=== PATIENT | male | born 1970 | race Caucasian/White ===

== ENCOUNTER 2017-10-07 10:19 | Inpatient (IN) ==
[2017-10-07 11:02] LABS: Basophils # 0.1 K/mcL (0.0-0.2); Basophils % 0.6 %; Eosinophils # 0.2 K/mcL (0.0-0.6); Eosinophils % 1.3 %; Hematocrit 42.3 % (37.5-50.1); Hemoglobin 14.7 g/dL (12.9-16.9); Immature Granulocytes % 0.9 % (0-4); Lymphocytes # 2.6 K/mcL (0.6-4.6); Lymphocytes % 20.4 %; Mean Corpuscular HGB Conc 34.8 g/dL (31.6-35.5); Mean Corpuscular Hemoglobin 31.2 pg (28.0-33.3); Mean Corpuscular Volume 89.8 fL (83.0-100.0); Mean Platelet Volume 11.3 fL (9.4-12.4); Monocytes # 1.2 K/mcL (0.0-1.3); Monocytes % 9.2 %; Neutrophils # 8.6 K/mcL (1.6-8.9); Platelet Count 280 K/mcL (140-400); Red Blood Count 4.71 M/mcL (4.19-5.50); Red Cell Distribution Width 13.2 % (11.5-14.5); Segmented Neutrophils % 67.6 %
[2017-10-07 11:09] LABS: INR 1.2; Prothrombin Time 13.1 Seconds (9.4-12.1)
[2017-10-07 11:12] LABS: Activated Partial Thrombo Time 25.1 Seconds (26.0-36.0)
--- NOTE | 2017-10-07 11:13 | Emergency Department Note ---
Disposition Clinical Impression: Chest pain Qualifiers: Chest pain type: unspecified Qualified Code(s): R07.9 - Chest pain, unspecified Disposition: Admitted As Inpatient Condition: Good Chest Pain HPI - General Chief Complaint: ED Chest Pain Stated Complaint: C/P Time Seen by Provider: 10/07/17 10:53 Source: patient Mode of arrival: ambulatory Limitations: no limitations Vital Signs Reviewed: Yes Nursing Notes Reviewed: Yes - History of Present Illness HPI Narrative: Patient presents for evaluation of chest pain. Patient states that he was evaluated approximately 30 days ago at [facility] for similar and told that he had a heart attack. He had a stress test. No cardiac catheter or stents or bypass. There were medication changes made. Patient has continued to have what he describes as someone pressing a shovel onto his chest. This pressure comes on with exertion. Is associated with shortness of breath. Gets better with rest. Patient describes likely to be classic anginal symptoms. Patient states that he can sometimes make it 15 minutes prior to having his symptoms but other times cannot make it more than several steps down the hallway. The patient has a mother who had a heart attack in her early 50s. He smokes on a daily basis. He does not know about hypertension or hypercholesterol. He was seen at his PCP today told he was having a heart attack and referred to the emergency department for further testing and admission. Severity scale (1-10): 10 - Related Data Home Medications Medication Instructions Recorded Confirmed Metoprolol Tartrate [Lopressor] 50 mg PO BID 10/07/17 10/07/17 Allergies Allergy/AdvReac Type Severity Reaction Status Date / Time No Known Allergies Allergy Verified 10/07/17 10:33 Review of Systems: CONSTITUTIONAL: No weight loss, fever, chills, weakness or fatigue. HEENT: Eyes: No visual changes. Ears, Nose, Throat: No hearing loss, difficulty talking or unable to swallow. SKIN: No rash or itching. CARDIOVASCULAR: Chest pain worse with exertion. RESPIRATORY: Shortness of breath with exertion GASTROINTESTINAL: No anorexia, nausea, vomiting or diarrhea. No abdominal pain or blood. GENITOURINARY: No burning on urination or hematuria. NEUROLOGICAL: No headache, dizziness, syncope, paralysis, ataxia, numbness or tingling in the extremities. No change in bowel or bladder control. MUSCULOSKELETAL: No muscle pain, back pain, joint pain or stiffness. Chest Pain PMH - Past Medical History Medical history: Reports: hypertension, myocardial infarction Psychiatric history: Reports: anxiety - Social History Smoking Status: Current every day smoker Alcohol use: Reports: none Physical Exam General: Well appearing, nontoxic, no acute distress Head: Normocephalic Atraumatic Eyes: PERRL, EOMI ENT: Airway patent, no stridor Neck: supple, no meningismus Chest: Lungs clear to auscultation bilateral Cardiac: Regular rate and rhythm, no murmurs, rubs or gallops Abdomen: soft, nontender, nondistended; no guarding, rebound, or tenderness to percussion Musculoskeletal: Calves symmetric, nontender, no palpable cord Skin: No rash, normal skin tone Neuro: Alert and Oriented to person, place, and time; No focal deficit, CN 2-12 symmetric and intact - General General appearance: alert, in no apparent distress Course - Reevaluation(s) Reevaluation #1: The patient's previous blood work from [facility] shows that he has an elevated troponin. The patient then had stress testing which was unremarkable. Patient continues to have classic anginal symptoms. Patient be admitted for further evaluation. - Consultations Consultation #1: Discussed with hospitalist. Patient accepted for admission. Vital Signs Temperature 99.4 F 10/07/17 10:24 Pulse Rate 94 10/07/17 10:24 Respiratory Rate 16 10/07/17 10:24 Blood Pressure 126/93 10/07/17 10:24 O2 Sat by Pulse Oximetry 96 10/07/17 10:24 Temperature 98.6 F 10/07/17 19:35 Pulse Rate 101 10/07/17 19:35 Respiratory Rate 16 10/07/17 19:35 Blood Pressure 147/100 10/07/17 19:35 O2 Sat by Pulse Oximetry 97 10/07/17 19:35 Oxygen Delivery Oxygen Delivery Room Air Chest Pain - Medical Records Medical records reviewed: Yes I reviewed the patient's medical records. - Lab Data Lab results reviewed: Yes I reviewed the patient's lab results. Result diagrams: 10/07/17 10:54 10/07/17 10:54 Lab Results 10/07/17 10/07/17 10/07/17 Range/Units 10:54 10:54 10:54 WBC 12.6 H (4.3-11.1) K/mcL RBC 4.71 (4.19-5.50) M/mcL Hgb 14.7 (12.9-16.9) g/dL Hct 42.3 (37.5-50.1) % MCV 89.8 (83.0-100.0) fL MCH 31.2 (28.0-33.3) pg MCHC 34.8 (31.6-35.5) g/dL RDW 13.2 (11.5-14.5) % Plt Count 280 (140-400) K/mcL MPV 11.3 (9.4-12.4) fL Immature Gran % 0.9 (0-4) % Seg Neutrophils % 67.6 % Lymphocytes % 20.4 % Monocytes % 9.2 % Eosinophils % 1.3 % Basophils % 0.6 % Neutrophils # 8.6 (1.6-8.9) K/mcL Lymphocytes # 2.6 (0.6-4.6) K/mcL Monocytes # 1.2 (0.0-1.3) K/mcL Eosinophils # 0.2 (0.0-0.6) K/mcL Basophils # 0.1 (0.0-0.2) K/mcL PT 13.1 H (9.4-12.1) Seconds INR 1.2 APTT 25.1 L (26.0-36.0) Seconds Sodium 131 L (136-145) mEq/L Potassium 3.7 (3.5-5.1) mEq/L Chloride 99 (98-107) mEq/L Carbon Dioxide 15 L (23-29) mEq/L BUN 11 (6-20) mg/dL Creatinine 0.82 (0.70-1.30) mg/dL Est GFR ( Amer) > 60 (> 60) Est GFR (Non-Af Amer) > 60 (> 60) BUN/Creatinine Ratio 13 (6-26) Glucose 432 H (70-105) mg/dL Calculated Osmolality 290 (280-300) Calcium 9.3 (8.6-10.3) mg/dL Troponin I (< 0.04) ng/mL 10/07/17 Range/Units 10:54 WBC (4.3-11.1) K/mcL RBC (4.19-5.50) M/mcL Hgb (12.9-16.9) g/dL Hct (37.5-50.1) % MCV (83.0-100.0) fL MCH (28.0-33.3) pg MCHC (31.6-35.5) g/dL RDW (11.5-14.5) % Plt Count (140-400) K/mcL MPV (9.4-12.4) fL Immature Gran % (0-4) % Seg Neutrophils % % Lymphocytes % % Monocytes % % Eosinophils % % Basophils % % Neutrophils # (1.6-8.9) K/mcL Lymphocytes # (0.6-4.6) K/mcL Monocytes # (0.0-1.3) K/mcL Eosinophils # (0.0-0.6) K/mcL Basophils # (0.0-0.2) K/mcL PT (9.4-12.1) Seconds INR APTT (26.0-36.0) Seconds Sodium (136-145) mEq/L Potassium (3.5-5.1) mEq/L Chloride (98-107) mEq/L Carbon Dioxide (23-29) mEq/L BUN (6-20) mg/dL Creatinine (0.70-1.30) mg/dL Est GFR ( Amer) (> 60) Est GFR (Non-Af Amer) (> 60) BUN/Creatinine Ratio (6-26) Glucose (70-105) mg/dL Calculated Osmolality (280-300) Calcium (8.6-10.3) mg/dL Troponin I 0.03 (< 0.04) ng/mL - Radiology Data Radiology results reviewed: Yes I reviewed the patient's radiology results. - EKG Data EKG attestation: Yes I reviewed and interpreted this EKG. EKG results narrative: EKG shows sinus rhythm with ventricular rate of 93. PR126. QRS 94. QTC 376. No significant elevations or depressions. Patient does have T-wave flattening of the inferior lateral leads. No previous comparison. Heart Score - Score History: Highly Suspicious EKG: Non Specific repolarisation Disturbance Age: 45-65 Risk Factors: 1-2 risk factors Troponin: Less than normal limit HEART Score Total: 5
[2017-10-07] MEDS ORDERED: Aspirin 325 MG TABLET PO ONE (11:21)
--- NOTE | 2017-10-07 11:21 | Emergency Department Note ---
START Narrative - START START: I examined this patient and my medical decision-making was reviewed with the Resident Physician. I agree with the documented findings, disposition and treatment plan as described except to the extent set forth below. 47-year-old male presents to the ER with chest pain. Patient states he had a mild heart attack 30 days ago [facility] They did not do heart catheter on him. He does smoke one pack per day. No stent. Patient will need to be admitted for cardiac workup and consultation.
[2017-10-07 11:23] LABS: BUN/Creatinine Ratio 13 (6-26); Blood Urea Nitrogen 11 mg/dL (6-20); Calcium 9.3 mg/dL (8.6-10.3); Carbon Dioxide 15 mEq/L (23-29); Chloride 99 mEq/L (98-107); Glucose 432 mg/dL (70-105); Osmolality,Calculated 290 (280-300); Potassium 3.7 mEq/L (3.5-5.1); Sodium 131 mEq/L (136-145); eGFR For African Americans > 60 (> 60); eGFR For Non-African Americans > 60 (> 60)
[2017-10-07] MEDS: Nitroglycerin 0.4 MG TAB.SUBL SL PRN ×6 (11:43→20:55)
[2017-10-07] MEDS ORDERED: *HR* Morphine 2 MG/ML SYRINGE IVP ONE (12:31)
--- NOTE | 2017-10-07 14:17 | Internal Med History&Physical ---
Date of Encounter: 10/07/17 Time of Encounter: 14:14 Assessment and Plan (1) Hyperglycemia Current visit: Yes Status: Acute Not known to be diabetic. Sugars in the 400 range. Check hemoglobin A-1 C. Check sugars before meals and bedtime. (2) Chest pain Current visit: Yes Status: Acute r/o acute coronary syndrome. Electrocardiogram shows no ST-segment shifts. Check serial troponin. continue aspirin beta blockers. troponin normal. Cardiology evaluation. Tele monitoring Qualifiers: Chest pain type: unspecified Qualified Code(s): R07.9 - Chest pain, unspecified Internal Medicine - H&P: HPI History of present illness: Mr. Deshpande is a 47 year old male who presents to the emergency room today with a main complaint of chest pain. Since this morning patient has been having retrosternal dull aching chest pain that has been constant since it started. He notices that pain gets worse with exertion. He also mentioned that he has been having this pain many days over the past month. Sublingual nitroglycerin does not improve his pain but rather causes headache and hypotension. He was evaluated month ago for similar symptoms and reports elevated troponin. He never had a coronary angiogram. Past Med Surg Social Fam HX - Past Medical History Medical history: hypertension, myocardial infarction Psychiatric history: anxiety - Social History Smoking Status: Current every day smoker Alcohol use: none Internal Medicine - H&P: Meds Metoprolol Tartrate [Lopressor] 50 mg PO BID 10/07/17 [History] 3 Allergy/AdvReac Type Severity Reaction Status Date / Time No Known Allergies Allergy Verified 10/07/17 10:33 All Systems PM: A 10-system review of systems was performed and is negative for pertinent findings except as documented above in the HPI. Review of systems: 10 point review of systems is negative except for HPI - Constitutional Vitals: Temp Pulse Resp BP Pulse Ox 99.4 F 94 12 98/71 94 10/07/17 10:24 10/07/17 13:29 10/07/17 13:29 10/07/17 13:29 10/07/17 13:29 Exam: Gen.: patient is alert oriented times 3 not in distress. Cardiac: normal S1 S2 no additional sounds are murmurs. Chest: clear to auscultation. Abdomen: soft nontender nondistended. Lower extremity no swelling mucous membranes: moist Internal Med - H&P Results - Labs CBC & Chem 7: 10/07/17 10:54 10/07/17 10:54
--- NOTE | 2017-10-07 14:19 | Cardiology Consult Note ---
<John Shannon - Last Filed: 10/07/17 14:20> Date of Encounter: 10/07/17 Time of Encounter: 14:20 Assessment and Plan (1) Chest pain Current Visit: Yes Status: Acute Per Cardiology: Atypical chest pain symptoms reproducible with palpation, laying flat, and deep inspiration. Had recent mild troponins with peak of 0.138 at outside facility a few weeks ago in setting of acute pancreatitis. Echo at that time showed EF preserved 55-60%, mild diastolic dysfunction. Negative nuclear stress test. Troponin negative 1. Obtain medical records from outside facility-- reports surgery on his stomach about one year ago. Continue cycle troponins. Can consider further ischemic evaluation in terms of left heart catheterization, however will monitor to determine if clinically appropriate. I will discuss and review with Dr. Solorio. Qualifiers: Chest pain type: unspecified Qualified Code(s): R07.9 - Chest pain, unspecified Discussion w patient/family: The assessment and plan as outlined above was discussed with the patient and/or family members who expressed understanding and agreement. All questions were answered. Thank you for involving us in the care of your patient. Please call with any questions. History of Present Illness Consult date: 10/07/17 Requesting physician: Nabeel Mooney Consult reason: CP Chief complaint: CP History of present illness: Mr. Deshpande is a 47 year old male with a relevant past medical history nicotine abuse, anxiety, GERD, PUD, ETOH abuse, and hypertension (recently diagnosed). Not previously seen by cardiology. Outside medical records reviewed: seen late August/early September at [facility] and diagnosed with acute pancreatitis with mild troponins 0.112, 0.138 , and 0.125. Echo at that time showed EF 55-60%, mild diastolic dysfunction. Nuclear imaging negative for ischemia September 2017. Of note patient + for metamphetamines, + opiates. ETOH level was 0.103. Cardiology consult for chest pain. Patient seen with girlfriend at bedside. Patient reports since last hospital stay over the past one month has been experiencing chest pain at rest and with exertion. Reports presented to establish with PCP today and had chest pain upon evaluation with ECG obtained and then referred to ER by PCP at that time. Patient reports over the past few months overall increased shortness of breath with exertion. He reports for the past one month increased chills and diaphoresis. He reports occasional dizziness. He reports family history mother with CAD with stenting. He reports he smoked 1.5ppd for at least 30 years. He reports history of using Percocet in the past, however denies any recent drug use. Denies any history of IV drug abuse. Reports had recent emergency surgery" for his stomach " about one year ago at [facility]. Has never had LHC. Midsternal CP slightly worse today with palpation. CP worsened today with laying flat and taking deep inspirations. Past Med Surg Social Fam HX - Past Medical History Attestation: Yes The following information was validated with the patient. Source: patient, old records reviewed, obtained from family Medical history: hypertension, myocardial infarction Psychiatric history: anxiety - Social History Smoking Status: Heavy tobacco smoker Packs per day: 1.5ppd for at least 30 yrs Alcohol use: heavy (Reports 3-5 shots of vodka 3-5 days per week for the past 15 years, reports recently quit a month ago), recent Drug use: unknown (Patient denies-- coarse history of utilizing Percocet), opiates (+ 1 month ago ), [facility]) Medications and Allergies Metoprolol Tartrate [Lopressor] 50 mg PO BID 10/07/17 [History] 3 Allergy/AdvReac Type Severity Reaction Status Date / Time No Known Allergies Allergy Verified 10/07/17 10:33 All Systems Review: A 10-system review of systems was performed and is negative for pertinent findings except as documented above in the HPI. - Constitutional Constitutional: chills - Cardiovascular Cardiovascular: as per HPI, chest pain at rest, chest pain with exertion, diaphoresis, dyspnea on exertion Physical Examination Vital Signs, Last 4 Hours Pulse Resp BP Pulse Ox 10/07/17 13:29 94 12 98/71 94 General: Conversant, No Apparent Distress HEENT: Atraumatic, Normocephaly, Mucus Membranes Moist Neck: No JVD, Normal carotid pulses Cardiac: Reg Rate and Rhythm, Normal S1 and S2, No Murmur Lungs: Normal Breath Sounds, No Wheeze, Rales, Rhonchi Neuro: Alert and responsive, No focal deficits noted Abdomen: Soft, Non-Tender Skin: No rashes noted on visualized skin Musculoskeletal: No Chest Wall Tenderness Extremities: No Clubbing, No Cyanosis, No Edema, Normal Pulses Results 10/07/17 10:54 10/07/17 10:54 Laboratory Tests 10/07/17 10/07/17 10/07/17 10:54 10:54 10:54 INR 1.2 Creatinine 0.82 Est GFR (Non-Af Amer) > 60 Troponin I 0.03 ITS Impressions Chest X-Ray 10/07/17 10:35 IMPRESSION: No acute cardiopulmonary pathology. D/ / Chay Nagel MD / Chay Nagel MD Interpreting Provider: Chay Nagel MD Intake & Output 10/04/17 10/05/17 10/06/17 10/07/17 23:59 23:59 23:59 23:59 Weight 75.296 kg Active Medications Aspirin (Aspirin) 325 mg PO DAILY [facility] Stop: 04/09/18 09:01 Enoxaparin Sodium (Lovenox) 40 mg SQ 0600 [facility] PRN Reason: Protocol Stop: 04/08/18 15:01 Metoprolol Tartrate (Lopressor) 25 mg PO BID [facility] Stop: 04/08/18 21:01 Nitroglycerin (Nitroglycerin) 0.4 mg SL Q5MIN PRN PRN Reason: Chest Pain Stop: 04/08/18 11:22 Last Admin: 10/07/17 11:49 Dose: 0.4 mg - Imaging and Cardiology Stress Test: report reviewed Echo: report reviewed - EKG Interpretation EKG results cardiology: personally reviewed, normal ECG, sinus rhythm ( Nonspecific ST changes, artifact) Consult Discharge Plan - Plan Referrals: Myles Hess MD [Primary Care Provider] - 10/21/17 9:00 am <Twin Solorio - Last Filed: 10/10/17 11:17> Date of Encounter: 10/07/17 Time of Encounter: 18:00 - Attending Attestation I have personally performed a face to face evaluation on this patient. I have reviewed and agree with the care plan. History and Exam by me shows: CC: Chest pain Pt reports midsternal chest pain, 8/10 at most severe, associated with exertion , accompanied by shortness of breath, lasts ten to fifteen minutes, resolves with rest. HE has had several episodes per week, but do not occur daily. Pt also reports has had several episodes of dizziness and shortness of breath which have occurred at rest, These events are less frequent than chest pain. He has not had an event while driving, has not actually lost consciousness. Pt denies previous cardiac evaluation other than an EKG, no previous echo or LHC that he or his girlfriend at bedside can recall. PE: Reviewed above, agree with addition of pinpoint tenderness left fifth interapace, mid clavicular line, very tender to palpation, light pressure reproduces presenting chest pain. IMP: 1. Chest pain, some components suggestive of exertional angina, in pt with multiple risk factors, discussed medical tx versus LHC, note previous positive cardiac enzemes in early [facility] at [facility], recommend LHC, pt elects to proceed with invasive strategy, will schedule LHC possible in AM. Risks and benefits discussed, agrees to proceed. 2. Tobacco abuse, recommend smoking cessation 3. Hypertension: recent diagnosis, started on PO metoprolol 4. Possible substance abuse, note urine screen positive for meamphetamines, opiates and alcohol, Assessment and Plan Discussion w patient/family: The assessment and plan as outlined above was discussed with the patient and/or family members who expressed understanding and agreement. All questions were answered. Thank you for involving us in the care of your patient. Please call with any questions. History of Present Illness History of present illness: Mr. Deshpande is a 47 year old male Past Med Surg Social Fam HX - Family History Mother Hx Family Cardiac Disorders: Yes Hx Family Endocrine Disorder: Yes All Systems Review: A 10-system review of systems was performed and is negative for pertinent findings except as documented above in the HPI. Physical Examination Vital Signs, Last 4 Hours Temp Pulse Resp BP Pulse Ox 10/10/17 09:00 96 10/10/17 07:00 98.1 F 105 17 144/97 96 Results 10/10/17 08:00 10/10/17 08:00 Lab Results 10/10/17 10/10/17 08:00 08:00 WBC 7.6 Hgb 13.6 Hct 38.5 Plt Count 187 Sodium 130 L Potassium 3.8 Chloride 96 L Carbon Dioxide 24 BUN 7 Creatinine 0.56 L Glucose 307 H Calcium 9.0 Total Bilirubin 0.5 AST 20 ALT 14 Alkaline Phosphatase 111 H
[2017-10-07] MEDS: *HR* Enoxaparin 40 MG/0.4 ML SYRINGE SQ SCH (15:51)
[2017-10-07] MEDS: *HR* Morphine 2 MG/ML SYRINGE IVP PRN ×2 (18:27→23:20)
[2017-10-07] MEDS ORDERED: *HR* Dextrose 50 % in Water (Syg) 50 ML SYRINGE IVP PRN (20:11)
[2017-10-07] MEDS ORDERED: D5% in Water 1,000 ML IVC PRN (20:11)
[2017-10-07] MEDS ORDERED: Dextrose Gel 15 GM/37.5 ML TUBE PO PRN ×2 (20:11)
[2017-10-07] MEDS: Insulin LISPRO 300 UNITS/3 ML VIAL SQ SCH ×2 (20:34→20:37)
[2017-10-07] MEDS ORDERED: Insulin LISPRO 300 UNITS/3 ML VIAL SQ ONE (23:06)
[2017-10-08] MEDS: Melatonin 3 MG TABLET PO PRN ×2 (01:24→22:22)
[2017-10-08] MEDS: *HR* Morphine 2 MG/ML SYRINGE IVP PRN ×4 (05:12→22:20)
[2017-10-08] MEDS: *HR* Enoxaparin 40 MG/0.4 ML SYRINGE SQ SCH (05:14)
[2017-10-08 05:34] LABS: Basophils % 0.4 %; Eosinophils # 0.1 K/mcL (0.0-0.6); Eosinophils % 1.4 %; Hematocrit 39.8 % (37.5-50.1); Hemoglobin 13.7 g/dL (12.9-16.9); Lymphocytes # 1.5 K/mcL (0.6-4.6); Lymphocytes % 16.3 %; Mean Corpuscular HGB Conc 34.4 g/dL (31.6-35.5); Mean Corpuscular Hemoglobin 30.8 pg (28.0-33.3); Mean Corpuscular Volume 89.4 fL (83.0-100.0); Mean Platelet Volume 11.8 fL (9.4-12.4); Monocytes # 1.1 K/mcL (0.0-1.3); Monocytes % 11.4 %; Neutrophils # 6.6 K/mcL (1.6-8.9); Platelet Count 222 K/mcL (140-400); Red Blood Count 4.45 M/mcL (4.19-5.50); Red Cell Distribution Width 13.2 % (11.5-14.5); Segmented Neutrophils % 69.5 %
[2017-10-08 05:42] LABS: Hemoglobin A1C 10.1 %
[2017-10-08 05:52] LABS: BUN/Creatinine Ratio 15 (6-26); Blood Urea Nitrogen 9 mg/dL (6-20); Calcium 9.2 mg/dL (8.6-10.3); Carbon Dioxide 24 mEq/L (23-29); Chloride 103 mEq/L (98-107); Chol/HDL Ratio 3.6 (0-4.9); Cholesterol 123 mg/dL (< 200); Glucose 205 mg/dL (70-105); HDL Cholesterol 34 mg/dL (40-59); LDL Cholesterol,Calculated 50 mg/dL (0-99); Magnesium 1.9 mg/dL (1.6-2.6); Osmolality,Calculated 287 (280-300); Potassium 3.2 mEq/L (3.5-5.1); Sodium 136 mEq/L (136-145); Triglycerides 197 mg/dL (< 150); eGFR For African Americans > 60 (> 60); eGFR For Non-African Americans > 60 (> 60)
[2017-10-08] MEDS: Insulin LISPRO 300 UNITS/3 ML VIAL SQ SCH ×4 (08:23→20:40)
[2017-10-08] MEDS: Aspirin 325 MG TABLET PO SCH (08:27)
[2017-10-08] MEDS: Nitroglycerin 0.4 MG TAB.SUBL SL PRN ×2 (08:28→08:39)
--- NOTE | 2017-10-08 08:35 | Cardiology Progress Note ---
Date of Encounter: 10/08/17 Time of Encounter: 08:30 Assessment and Plan (1) Chest pain Current Visit: Yes Status: Acute Per Cardiology: Atypical chest pain symptoms reproducible with palpation, laying flat, and deep inspiration. Had recent mild troponins with peak of 0.138 at outside facility a few weeks ago in setting of acute pancreatitis. Echo at that time showed EF preserved 55-60%, mild diastolic dysfunction. Negative nuclear stress test. Troponin negative 1, no other trops noted-- will check stat, now also negative. No other records noted regarding outside "emergent stomach surgery 1 year ago". Current LFTs/amylase/lipase now normalized. Patient seen and exmained with Dr. Solorio. Now with previously undiagnosed DM2-- A1c 10.1. Patient agreeable to [facility]. Dr. Olivia Senior aware and agreeable. Further recs after [facility] today. All questions answered. On asa, BB. Qualifiers: Chest pain type: unspecified Qualified Code(s): R07.9 - Chest pain, unspecified (2) History of pancreatitis Current Visit: Yes Status: Acute Per Cardiology: Recent acute pancreatitis a few weeks ago with elevated amylase/lipase and LFTs. Will check labs-- normalized now. Management per primary service. (3) Elevated hemoglobin A1c Current Visit: Yes Status: Acute Per Cardiology: A1c 10.1, denies hx of DM. Management per primary service. (4) Nicotine abuse Current Visit: Yes Status: Chronic Per Cardiology: Smoking cessation encouraged. (5) ETOH abuse Current Visit: Yes Status: Acute Per Cardiology: Reports 3-5 shots of vodka 3-5 x per week for past 15 years, reports quit 3 weeks ago. Consider CIWA protocol. Patient denies current hx of polysubstance abuse (reports Percocet in past), however tox results from a few weeks ago noted + for amphetamines and opiates. Discussion w patient/family: The assessment and plan as outlined above was discussed with the patient who expressed understanding and agreement. All questions were answered. Thank you for involving us in the care of your patient. Please call with any questions. Subjective Principal diagnosis: CP Interval history: Patient reports no CP currently, however reproducible on exam with laying fay, palpation and deep inspiration again today. Objective Vital Signs, Last 4 Hours Temp Pulse Resp BP Pulse Ox 10/08/17 06:43 97.9 F 97 18 126/87 97 General: Conversant, No Apparent Distress HEENT: Atraumatic, Normocephaly, Mucus Membranes Moist Neck: No JVD, Normal carotid pulses Cardiac: Reg Rate and Rhythm, Normal S1 and S2, No Murmur Lungs: Normal Breath Sounds, No Wheeze, Rales, Rhonchi Neuro: Alert and responsive, No focal deficits noted Abdomen: Soft, Non-Tender Skin: No rashes noted on visualized skin Musculoskeletal: Other (as per HPI) Extremities: No Clubbing, No Cyanosis, No Edema, Normal Pulses Results 10/08/17 04:59 10/08/17 04:59 Lab Results Laboratory Tests 10/07/17 10/08/17 10/08/17 10:54 04:59 04:59 Glucose 432 H Hemoglobin A1c 10.1 H LDL Cholesterol, Calc 50 Laboratory Tests 10/08/17 10/08/17 08:45 08:45 AST 15 ALT 12 Troponin I 0.03 Amylase 24 L Lipase 28 Laboratory Tests 10/08/17 04:59 LDL Cholesterol, Calc 50 Active Medications Aspirin (Aspirin) 81 mg PO DAILY [facility] Stop: 04/09/18 09:01 Last Admin: 10/08/17 08:27 Dose: 81 mg Calcium Carbonate (Tums) 1,000 mg PO Q4HR PRN; Protocol PRN Reason: Heartburn Stop: 04/08/18 20:14 Last Admin: 10/07/17 20:34 Dose: 1,000 mg Dextrose/Water (Dextrose 50% (Syg)) 25 ml IVP AD PRN PRN Reason: Hypoglycemia Stop: 04/08/18 20:12 Enoxaparin Sodium (Lovenox) 40 mg SQ 0600 [facility] PRN Reason: Protocol Stop: 04/08/18 15:01 Last Admin: 10/08/17 05:14 Dose: 40 mg Glucagon (Glucagen) 1 mg IM ONCE PRN PRN Reason: Hypoglycemia Stop: 04/08/18 20:12 Glucose (Gluctose) 15 gm PO ONCE PRN PRN Reason: Hypoglycemia Stop: 04/08/18 20:12 Glucose (Gluctose) 30 gm PO ONCE PRN PRN Reason: Hypoglycemia Stop: 04/08/18 20:12 Dextrose (Dextrose 5%) 1,000 mls @ 100 mls/hr IVC .Q10H PRN PRN Reason: HYPOGLYCEMIA Stop: 04/08/18 20:12 Insulin Human Lispro (Humalog) 0 units SQ HS [facility] PRN Reason: Protocol Stop: 04/08/18 21:01 Last Admin: 10/07/17 20:34 Dose: 8 units Insulin Human Lispro (Humalog) 0 units SQ TIDAC [facility] PRN Reason: Protocol Stop: 04/08/18 20:16 Last Admin: 10/08/17 08:23 Dose: Not Given Melatonin (Melatonin) 3 mg PO HS PRN PRN Reason: Insomnia Stop: 04/08/18 23:06 Last Admin: 10/08/17 01:24 Dose: 3 mg Metoprolol Tartrate (Lopressor) 25 mg PO BID [facility] Stop: 04/08/18 21:01 Last Admin: 10/08/17 08:28 Dose: 25 mg Morphine Sulfate (Morphine Sulfate) 1 mg IVP Q4HR PRN PRN Reason: Pain Stop: 04/08/18 20:01 Last Admin: 10/08/17 05:12 Dose: 1 mg Nitroglycerin (Nitroglycerin) 0.4 mg SL Q5MIN PRN PRN Reason: Chest Pain Stop: 04/08/18 11:22 Last Admin: 10/08/17 08:39 Dose: 0.4 mg - Imaging and Cardiology Stress Test: report reviewed Echo: report reviewed - EKG Interpretation EKG results cardiology: other (Tele reviewed with average heart rate 95 last 12 hours, sinus rhythm) Consult Discharge Plan - Plan Referrals: Myles Hess MD [Primary Care Provider] -
[2017-10-08] MEDS ORDERED: *HR* Morphine 2 MG/ML SYRINGE IVP ONE (08:50)
[2017-10-08] MEDS ORDERED: Aspirin 325 MG TABLET PO SCH (09:00)
[2017-10-08 09:10] LABS: Alanine Aminotransferase 12 Units/L (7-52); Amylase 24 Units/L (29-103); Aspartate Amino Transferase 15 Units/L (13-39); Lipase 28 Units/L (11-82)
--- NOTE | 2017-10-08 14:54 | Pre-Sedation Evaluation ---
Pre-sedation evaluation - Pre-sedation checklist Date of procedure: 10/08/17 Procedure: Heart Cath Recent Vitals: Last Vital Signs Temp 99.0 F 10/08/17 11:01 Pulse 83 10/08/17 11:01 Resp 18 10/08/17 11:01 BP 135/89 10/08/17 11:01 Pulse Ox 97 10/08/17 11:01 H&P (including ROS) documented in medical record: Yes Previous reaction to sedatives/anesthetics: No Dietary Status: NPO after Midnight Airway Assessment: Patient can open mouth completely, TMJ function normal, Micrognathia (under-bite, receding chin) absent, Neck with adequate range of motion Dentition: No loose teeth or bridges Possible difficult airway: No ASA Classification *see protocol: CLASS II-Mild systemic disease Plan of Care: Pt appropriate candidate for procedure/moderate/conscious sedation , Risks/benefits of procedure/sedation discussed w/ patient/family
[2017-10-08] MEDS ORDERED: *HR* Heparin 10,000 UNIT/10 ML VIAL ONE (15:02)
[2017-10-08] MEDS ORDERED: Nitroglycerin 1,000 MCG/10 ML VIAL IV ONE (15:02)
[2017-10-08] MEDS ORDERED: 0.9 % Sodium Chloride 1,000 ML ONE ×2 (15:02→15:17)
[2017-10-08] MEDS ORDERED: Heparin 1,000 UNITS/500 mL 500 ML ONE (15:02)
[2017-10-08] MEDS ORDERED: *HR* Midazolam HCl 2 MG/2 ML VIAL ONE (15:17)
[2017-10-08] MEDS ORDERED: *HR* FentaNYL (PF) 100 MCG/2 ML VIAL ONE (15:17)
--- NOTE | 2017-10-08 15:59 | Invasive Diagnostic Lab Proc ---
Name: Refugio Deshpande Date of Study: 10/08/2017 Date: 1970 Ht: 66.9in Medical Record#: [id number] Age: 47 Wt: 166.01lb Gender: Male BSA: 1.87 Order #: [id number] BMI: 26.06 Physicians Procedure Physician: Ramya Senior MD, [facility] Referring MD: Referring MD: Staff Name Position Time In Yenni Navarro RT (R) Scrub 03:00 PM Marialuisa Mendezian RT (R) Monitor 03:01 PM Beto Ball RN Upholstery Cutter 03:01 PM Indications Indication Unstable Angina Procedures Performed Procedure L HRT ARTERY/VENTRICLE ANGIO Pre-Procedure Checklist Informed consent is complete signed and on chart. H&P is on chart. ID band is on and ID verified with patient. Patient NPO for procedure The procedure was described for the patient and questions were answered. Blood Pressure: 119/88 ECG is on chart. Rhythm: NSR Plan of Care Patient will tolerate the procedure without complications. Adequate level of comfort will be maintained. Hemodynamics will remain stable Patient will recover from procedure without complications. Respiratory function will be maintained. Cardiac rhythm will remain stable. Patient temperature will be maintained. Patient and/or family have verbalized understanding of the procedure. Patient Education Chief Complaint/Reason for Test: Cardiac Cath Developmental Category: Adult (18-64 years) Developmentally Appropriate for Age: Yes Learning Barriers: None Education Needs: Procedure Education Method: Verbal Information Taught: Cardiac Cath Educational Evaluation: Able to repeat information Intravenous Access Time IV Size Location DC'd Fluid/Drip Rate Units RN 03:15 PM 20g 1 09/19" Patent On Arrival Rt Antecubital 0.9NaCl 25 ml/hr Beto Ball RN Allergies No Known Allergies Vital Signs Time BP (mmHg) HR (bpm) O2 Sat. RR (bpm) LOC 03:15 PM 135 / 89 83 97 % 18 5 = Fully awake and oriented or at pre-proc level 03:14 PM / % 4 = Oriented but drowsy 03:29 PM / % 5 = Fully awake and oriented or at pre-proc level 03:18 PM 119 / 88 95 99 % 10 03:23 PM 126 / 77 106 97 % 15 03:28 PM 108 / 79 100 96 % 17 03:34 PM 127 / 84 86 99 % 18 03:38 PM 135 / 86 99 99 % 17 03:43 PM 127 / 90 96 99 % 17 Procedural Medications Time Medication Dose Units Method Given By 03:21 PM Oxygen 2 L/min nasal cannula Beto Ball RN 03:21 PM Versed 2 mg Intravenous Beto Ball RN 03:21 PM Fentanyl 50 mcg Intravenous Beto Ball RN 03:30 PM Benadryl 25 mg Intravenous Beto Ball RN 03:30 PM Lidocaine 2% 18 ml Subcutaneous Ramya Senior MD, [facility] ASA Classification: CLASS II- Mild systemic disease (i.e. well-controlled diabetes, hypertension, asthma, cigarette smoking) Lisandro Score Preprocedure Postprocedure Activity 2- Moves 4 extremities sustained head lift Activity 2- Moves 4 extremities sustained head lift Circulation 2- SBP +/= 20 points of pre-anesthetic level Circulation 2- SBP +/= 20 points of pre-anesthetic level Consciousness 2- Awake and alert oriented x 3 Consciousness 2- Awake and alert oriented x 3 O2 Saturation 2- Able to maintain O2 satruation of 92% on room air O2 Saturation 2- Able to maintain O2 satruation of 92% on room air Respiratory 2- Able to deep breathe and cough well Respiratory 2- Able to deep breathe and cough well Total Score 10 Total Score 10 Contrast Agent: Isovue Diagnostic Contrast: 55 ml Total Contrast: 55 ml Fluoro Dose: 91 mGy Procedure Log Time Note Enter By 03:00 PM Yenni Navarro RT (R) Position: Scrub Time in: 15:00 [email or web address] 03:01 PM Rene Mendez RT (R) Position: Monitor Time in: 15:01 2 03:01 PM Beto Ball RN Position: Upholstery Cutter Time in: 15:01 [email or web address] 03:01 PM Patient charges- Angio tray pack, Navilyst 3mm J, Pulse Oximetry and ACIST tubing and transducer [email or web address] 03:13 PM CathStat 03:13 PM Pt arrived to [employer] 2 at 15:13 [email or web address] 03:13 PM Case Delayed No [email or web address] 03:14 PM Physician arrived 15:14 [email or web address] 03:14 PM Meet and greet completed [email or web address] 03:14 PM Sign in performed according to hospital policy. [email or web address] 03:14 PM Procedure start 15:14 [email or web address] 03:14 PM ASA Class CLASS II- Mild systemic disease (i.e. well-controlled diabetes, hypertension, asthma, cigarette smoking) 03:14 PM Time: 15:14 Patient comfortable and pain free: Yes 03:14 PM Time: 15:14LOC: 5 = Fully awake and oriented or at pre-proc level bw 03:15 PM Clinical Presentation: Unstable angina 03:18 PM Vitals capture started with the following parameters, Patient=Adult, Interval=5 min, Initial Bmcwfqgw=276 mmHg, Deflation Rate=5 mmHg, Cuff placed on Right Arm 03:18 PM HR=95 bpm, CWVU=646/88 mmhg, SpO2=99.0 %, Resp=10 B/min 03:20 PM Recorded ECG: HR=96 Condition=Condition 1 03:20 PM Hair removed from procedure site in holding area using clippers. Bilateral groin prepped with Chloraprep by Yenni Navarro (R), safety strap applied then patient was draped. Skin intact. 03:21 PM Time: 15:21 Oxygen on at 2 L/min per nasal cannula by Beto Ball RN [facility] 03:21 PM Time: 15:21 Versed 2 mg Intravenous Given by Beto Ball RN [place] [id number] 03:21 PM Time: 15:21 Fentanyl 50 mcg Intravenous Given by Beto Ball RN 03:23 PM BZ=100 bpm, SPDE=488/77 mmhg, SpO2=97.0 %, Resp=15 B/min 03:27 PM Pressure channel 1 zeroed. 03:28 PM Time out performed according to hospital policy 03:28 PM SQ=491 bpm, WQNL=023/79 mmhg, SpO2=96.0 %, Resp=17 B/min 03:29 PM Time: 15:14 Patient comfortable and pain free: Yes 03:29 PM Time: 15:14LOC: 4 = Oriented but drowsy 03:30 PM Time: 15:30 Benadryl 25 mg Intravenous Given by Beto Ball RN 03:31 PM Time: 15:30 18 ml Lidocaine 2% to right groin Subcutaneous Given by Ramya Senior MD, [facility] 03:32 PM Access obtained by percutaneous puncture. 5Fr 10cm Terumo [place] sheath placed in right Femoral artery. [id number] [email or web address] 03:32 PM 0.035 145cm Navilyst 3mmJ wire [id number] [email or web address] 03:32 PM 5Fr FL 4 [email or web address] 03[facility]33 PM LCA angiography performed in multiple views. [email or web address] 03:34 PM Recorded Pressure: Ao, HR=98, Condition=Condition 1 (Aorta) Ao 163/81/118 03:34 PM HR=86 bpm, VDRK=165/84 mmhg, SpO2=99.0 %, Resp=18 B/min 03:34 PM Catheter removed ilson 03:35 PM 5Fr FR 4 catheter [email or web address] 03:36 PM RCA angiography performed in multiple views. [email or web address] 03:36 PM Recorded Pressure: Ao, HR=98, Condition=Condition 1 (Aorta) Ao 110/27/66 03:36 PM Coronary Dominance: right [email or web address] 03:36 PM Catheter removed ilson 03:37 PM 5Fr Pigtail catheter inserted over the wire [facility] 03:37 PM Catheter selectively placed in left ventricle [email or web address] 03:37 PM Pressure channel 1 zeroed. 03:37 PM Recorded Pressure: LV, HR=99, Condition=Condition 1 (Left Ventricle) LV 90/3/5 03:38 PM Bolus angiogram of left Ventricle complete: 8 ml/sec for a total of 24 mls [email or web address] 03:38 PM Recorded Pressure: LV, Ao, HR=98, Condition=Condition 1 (Left Ventricle) LV 234/51/234, (Aorta) Ao 93/18/59 03:38 PM Catheter removed [email or web address] 03:38 PM Arterial sheath pulled, Mynx closure device used and was Successful [id number] S/N. [email or web address] 03:38 PM Bolus angiogram of right Femoral complete: 4 ml/sec for a total of 7 mls [email or web address] 03:38 PM Physician reviewing films [email or web address] 03:38 PM HR=99 bpm, IPXL=530/86 mmhg, SpO2=99.0 %, Resp=17 B/min 03:38 PM Recorded Pressure: Ao, HR=99, Condition=Condition 1 (Aorta) Ao 125/73/91 03:39 PM Procedure completed at 15:39 [email or web address] 03:40 PM Sign out completed: Radiation Dose 90.76 mGy Fluoro Time: 1.0 Isovue 370 - 200ml contrast 55 ml given by Ramya Senior MD, [facility]. Complications: NoneCardiac Rehab Consult needed: YesConfirmed administered medications: Yes [email or web address] 03:40 PM Isovue 370 - 200ml,1 Bottle(s) used. [email or web address] 03:42 PM Estimated Blood Loss: less than 20cc [email or web address] 03:43 PM Post ECG NSR [email or web address] 03:43 PM Post Blood Pressure 135/86 [email or web address] 03:43 PM 15:43 Post Pulses Bilateral DP & PT 2+ [email or web address] 03:43 PM HR=96 bpm, CBRK=281/90 mmhg, SpO2=99.0 %, Resp=17 B/min 03:44 PM Information taught Cardiac Cath and Mynx [email or web address] 03:44 PM Education needs Procedure, Plan of Care, and Disease Process [email or web address] 03:44 PM Learning barriers :Sedated [email or web address] 03:44 PM Time: 15:29LOC: 5 = Fully awake and oriented or at pre-proc level [email or web address] 03:44 PM Time: 15:29 Patient comfortable and pain free: Yes [email or web address] 03:44 PM Education Methods Verbal [email or web address] 03:44 PM Education evaluation Needs further instruction [email or web address] 03:44 PM Site status No bleeding/hematoma - Rt Groin as reported by Yenni Navarro RT (R) at 15:44 [email or web address] 03:44 PM Opsite applied [email or web address] 03:45 PM Delay to floor No [email or web address] 03:45 PM Complications: None [email or web address] 03:45 PM Fluoro Time: 1 [email or web address] 03:45 PM Isovue 370 - 200ml contrast 55 ml given by Ramya Senior MD, [facility]. [email or web address] 03:45 PM Radiation Dose 90.76 mGy [email or web address] 03:45 PM No family [email or web address] 03:45 PM Vitals capture stopped. 03:47 PM Report given to anabel STANLEY Pt taken to 3B Room #14. 15:47 [email or web address] 03:49 PM Patient out of room: 15:49 [email or web address] Complications Complication None None Hemodynamics Pressures Site Systolic/A Wave Diastolic/V Wave Mean AO 163 81 118 AO 110 27 66 LV 90 3 5 LV 234 51 234 AO 93 18 59 AO 125 73 91 Post Procedure Information Blood Pressure: 135/86 mmHg Rhythm: NSR Post procedural instructions were given Closure Device Time Device Success/Fail 10/08/2017 3:38:00 PM MynxGrip Successful Site Checks Time Location Status Staff Sheath In? Note 03:44 PM Rt Groin No bleeding/hematoma Yenni Navarro RT (R) Pulses Time Site Pre-Procedure Post-Procedure Note 10/08/2017 3:15:00 PM Bilateral DP & PT 2+ 3:43:00 PM Bilateral DP & PT 2+ Updated by Rene Mendez RT (R) on 10/08/2017 3:50:08 PM Rene Mendez RT electronically signed on 10/08/2017 3:50:30 PM with status of Final
--- NOTE | 2017-10-08 16:30 | Event Note ---
Date of Encounter: 10/08/17 Time of Encounter: 16:30 - Cardiology Event Note Per discussion with Dr. Ramya Senior, no lesions noted on left heart catheterization. Cardiology will sign off, reconsult as needed, follow-up with PCP in outpatient setting. Recommend evaluation for noncardiac causes. Education provided regarding post procedure care. Primary service notified.
--- NOTE | 2017-10-08 16:44 | Internal Med Progress Note ---
Date of Encounter: 10/08/17 Time of Encounter: 16:41 - Assessment and plan (1) Chest pain Current Visit: Yes Status: Acute Assessment and plan: presented with CP for one month, worse with exertion. Serial troponin negative, EKG without acute ST changes. CXR negative. 10/09/17 LHC showed normal coronary arteries, EF 65%. TTE pending. Cont ASA Qualifiers: Chest pain type: unspecified Qualified Code(s): R07.9 - Chest pain, unspecified (2) Diabetes Current Visit: Yes Status: Acute Assessment and plan: new diagnosis this admission. Hgb A1c 10%. Continue SSI for now. Plan to discharge home on metformin Qualifiers: Diabetes mellitus type: type 2 Diabetes mellitus complication status: without complication Diabetes mellitus terminal carman insulin use: without terminal carman use Qualified Code(s): E11.9 - Type 2 diabetes mellitus without complications (3) DVT prophylaxis Current Visit: Yes Status: Acute Assessment and plan: lovenox - Subjective Interval history: Seen and examined at bedside, patient is new to me. Information obtained from chart review - Constitutional Vitals: Temp Pulse Resp BP Pulse Ox 98.2 F 97 18 127/88 97 10/08/17 16:08 10/08/17 16:08 10/08/17 16:08 10/08/17 16:08 10/08/17 16:08 General appearance: Present: A&O X 3 - Head Head exam: Present: atraumatic, normocephalic - Eye Eye exam: Present: PERRL, conjuntiva pink, sclera anicteric Pupils: Present: PERRL - Neck Neck exam general surgery: Present: supple, trachea midline. Absent: lymphadenopathy - Respiratory Respiratory exam: Present: CTAB. Absent: accessory muscle use, rales, rhonchi, wheezes - Cardiovascular Cardiovascular exam: Present: RRR, +S1, +S2. Absent: diastolic murmur, gallop, rubs, systolic murmur - GI/Abdominal GI/Abdominal exam: Present: normal bowel sounds, soft, no peritoneal signs. Absent: distended, tenderness - Extremities Exam Extremities exam: Present: warm, radial pulses palpable and symmetrical. Absent : calf tenderness, cyanotic, pedal edema - Neurological Exam Neurological exam: Present: CN II-XII intact, oriented X3, no focal deficits. Absent: pronater drift, facial droop, speech deficit - Skin Skin exam: Present: dry, intact Internal Medicine: Result - Labs CBC & Chem 7: 10/08/17 04:59 10/08/17 04:59 Labs: Short CBC 10/08/17 Range/Units 04:59 WBC 9.5 (4.3-11.1) K/mcL Hgb 13.7 (12.9-16.9) g/dL Hct 39.8 (37.5-50.1) % Plt Count 222 (140-400) K/mcL Neutrophils # 6.6 (1.6-8.9) K/mcL BMP 10/08/17 04:59 Sodium 136 Potassium 3.2 L Chloride 103 Carbon Dioxide 24 BUN 9 Creatinine 0.59 L Glucose 205 H Calcium 9.2 Cardiac Enzymes 10/08/17 Range/Units 08:45 Troponin I 0.03 (< 0.04) ng/mL Liver Function 10/08/17 Range/Units 08:45 AST 15 (13-39) Units/L ALT 12 (7-52) Units/L - ABG Interpretation ABG results: PT/INR, D-dimer PT 13.1 Seconds (9.4-12.1) H 10/07/17 10:54 Consult Discharge Plan - Plan Referrals: Myles Hess MD [Primary Care Provider] -
[2017-10-09] MEDS: *HR* Morphine 2 MG/ML SYRINGE IVP PRN ×6 (02:46→22:48)
[2017-10-09] MEDS: *HR* Enoxaparin 40 MG/0.4 ML SYRINGE SQ SCH (05:15)
[2017-10-09] MEDS ORDERED: Aspirin 81 MG TAB.CHEW ONE (08:42)
[2017-10-09] MEDS: Aspirin 325 MG TABLET PO SCH (08:44)
[2017-10-09] MEDS: Insulin LISPRO 300 UNITS/3 ML VIAL SQ SCH ×3 (08:45→18:48)
--- NOTE | 2017-10-09 09:24 | Electrocardiograph Report ---
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
[2017-10-09 09:54] LABS: Hematocrit 37.2 % (37.5-50.1); Hemoglobin 12.9 g/dL (12.9-16.9); Mean Corpuscular HGB Conc 34.7 g/dL (31.6-35.5); Mean Corpuscular Hemoglobin 31.3 pg (28.0-33.3); Mean Corpuscular Volume 90.3 fL (83.0-100.0); Mean Platelet Volume 11.2 fL (9.4-12.4); Platelet Count 174 K/mcL (140-400); Red Blood Count 4.12 M/mcL (4.19-5.50)
[2017-10-09 10:02] LABS: Albumin 3.5 g/dL (3.5-5.7); Amylase 51 Units/L (29-103); Bilirubin,Total 0.5 mg/dL (0.3-1.0); Calcium 8.5 mg/dL (8.6-10.3); Carbon Dioxide 23 mEq/L (23-29); Chloride 97 mEq/L (98-107); Potassium 3.8 mEq/L (3.5-5.1); Sodium 131 mEq/L (136-145)
[2017-10-09 10:08] LABS: Triglycerides 196 mg/dL (< 150)
[2017-10-09] MEDS: Aspirin 81 MG TAB.CHEW PO SCH (10:15)
[2017-10-09 10:29] LABS: Alanine Aminotransferase 13 Units/L (7-52); Albumin/Globulin Ratio 1.1 (1.1-2.2); Alkaline Phosphatase 113 Units/L (34-104); Aspartate Amino Transferase 20 Units/L (13-39); BUN/Creatinine Ratio 8 (6-26); Blood Urea Nitrogen 5 mg/dL (6-20); Globulin 3.1 g/dL (2.4-3.5); Glucose 521 mg/dL (70-105); Osmolality,Calculated 293 (280-300); Total Protein 6.6 g/dL (6.4-8.9); eGFR For African Americans > 60 (> 60); eGFR For Non-African Americans > 60 (> 60)
[2017-10-09] MEDS ORDERED: Insulin LISPRO 300 UNITS/3 ML VIAL SQ SCH (10:39)
[2017-10-09] MEDS ORDERED: Insulin LISPRO 300 UNITS/3 ML VIAL SQ ONE (10:44)
[2017-10-09] MEDS ORDERED: Acetaminophen 325 MG TABLET PO ONE (14:32)
--- NOTE | 2017-10-09 18:06 | Electrocardiograph Report ---
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
--- NOTE | 2017-10-09 18:08 | Internal Med Progress Note ---
Date of Encounter: 10/09/17 Time of Encounter: 08:40 - Assessment and plan (1) Pancreatitis Current Visit: Yes Status: Acute Assessment and plan: presented with epigastric pain. ACS ruled out as noted below. ABD US showed complex cystic lesion near the pancreatic head, remainder of the pancreas is not well evaluated. When compared with recent CT of the chest pancreatic body and tail appear enlarged and edematous with adjacent inflammatory change. Findings likely represent acute appendicitis and findings near the pancreatic head may represent a peripancreatic fluid collection. Gallbladder normal. Does not appear acute or toxic. Afebrile, no elevated WBC. No indication for ATB at this time. NPO at midnight, GI and General Surgery consult. Qualifiers: Chronicity: acute Pancreatitis type: unspecified pancreatitis type Acute pancreatitis complication: no infection or necrosis Qualified Code(s): K85.90 - Acute pancreatitis without necrosis or infection, unspecified (2) Chest pain Current Visit: Yes Status: Acute Assessment and plan: presented with CP for one month, worse with exertion. Serial troponin negative, EKG without acute ST changes. CXR negative. 10/09/17 LHC showed normal coronary arteries, EF 65%. TTE pending. Suspect GI source as cause of CP. No further cardiac work-up needed. Qualifiers: Chest pain type: unspecified Qualified Code(s): R07.9 - Chest pain, unspecified (3) Diabetes Current Visit: Yes Status: Acute Assessment and plan: new diagnosis this admission. Hgb A1c 10%. Blood sugars remain elevated. Increase to high SSI. Monitor blood sugar and titrate PRN. Plan to discharge home on metformin Qualifiers: Diabetes mellitus type: type 2 Diabetes mellitus complication status: without complication Diabetes mellitus jail insulin use: without solar photovoltaic crew lead use Qualified Code(s): E11.9 - Type 2 diabetes mellitus without complications (4) DVT prophylaxis Current Visit: Yes Status: Acute Assessment and plan: lovenox - Subjective Interval history: Seen and examined at bedside. Still with c/o epigastric pain, improved with eating. Endorses hx pancreatitis. Last episode approx 6 months ago. Last drank 1 month ago. No CP, no SOB - Constitutional Vitals: Temp Pulse Resp BP Pulse Ox 97.5 F L 85 17 155/106 97 10/09/17 15:59 10/09/17 15:59 10/09/17 15:59 10/09/17 15:59 10/09/17 15:59 General appearance: Present: A&O X 3 - Head Head exam: Present: atraumatic, normocephalic - Eye Eye exam: Present: PERRL, conjuntiva pink, sclera anicteric Pupils: Present: PERRL - Neck Neck exam general surgery: Present: supple, trachea midline. Absent: lymphadenopathy - Respiratory Respiratory exam: Present: CTAB. Absent: accessory muscle use, rales, rhonchi, wheezes - Cardiovascular Cardiovascular exam: Present: RRR, +S1, +S2. Absent: diastolic murmur, gallop, rubs, systolic murmur - GI/Abdominal GI/Abdominal exam: Present: normal bowel sounds, soft, no peritoneal signs. Absent: distended, tenderness - Extremities Exam Extremities exam: Present: warm, radial pulses palpable and symmetrical. Absent : calf tenderness, cyanotic, pedal edema - Neurological Exam Neurological exam: Present: CN II-XII intact, oriented X3, no focal deficits. Absent: pronater drift, facial droop, speech deficit - Skin Skin exam: Present: dry, intact Internal Medicine: Result - Labs CBC & Chem 7: 10/09/17 09:42 10/09/17 09:42 Labs: Short CBC 10/09/17 Range/Units 09:42 WBC 6.5 (4.3-11.1) K/mcL Hgb 12.9 (12.9-16.9) g/dL Hct 37.2 L (37.5-50.1) % Plt Count 174 (140-400) K/mcL BMP 10/09/17 09:42 Sodium 131 L Potassium 3.8 Chloride 97 L Carbon Dioxide 23 BUN 5 L Creatinine 0.64 L Glucose 521 H* Calcium 8.5 L Liver Function 10/09/17 Range/Units 09:42 Total Bilirubin 0.5 (0.3-1.0) mg/dL AST 20 (13-39) Units/L ALT 13 (7-52) Units/L Alkaline Phosphatase 113 H (34-104) Units/L Albumin 3.5 (3.5-5.7) g/dL - ABG Interpretation ABG results: PT/INR, D-dimer PT 13.1 Seconds (9.4-12.1) H 10/07/17 10:54 - Impressions Impressions Echocardiogram 10/08/17 17:06 Impressions: LVEF 70%. Normal LV chamber size, wall thickness and function. Indeterminate diastolic function. Normal right ventricular structure and function. Unable to estimate RVSP due to lack of TR jet. No significant valvular dysfunction. Left Ventricular Wall Motion: Rest Echo Findings All wall segments showed normal motion. Findings: Study Quality * Technically adequate exam. ECG Findings * Normal sinus rhythm. Left Ventricle * LVEF 70%. * Normal LV chamber size, wall thickness and function. * Indeterminate diastolic function. Right Ventricle * Normal right ventricular structure and function. Left Atrium * Mildly dilated left atrium. Right Atrium * Normal right atrial size. Interatrial Septum * Interatrial septum not well evaluated. Aortic Valve * Trileaflet aortic valve with normal function. * No aortic regurgitation. * No aortic stenosis. Mitral Valve * Normal mitral valve structure and function. * No mitral regurgitation. * No mitral stenosis. Tricuspid Valve * Normal tricuspid valve structure and function. * No tricuspid regurgitation. * Unable to estimate RVSP due to lack of TR jet. Pulmonic Valve * Normal pulmonic valve structure and function. * No pulmonic regurgitation. Aorta * Normally sized aortic root. Pericardium * The pericardium appears normal. IVC * Normal IVC dimensions and inspiratory collapse. Pulmonary Artery * Normal visualized portions of the main pulmonary artery. Chest CTA 10/09/17 02:08 IMPRESSION: 1. No definite scan evidence for pulmonary embolus. 2. Coronary artery disease. 3. Inflammation in the upper abdomen suggesting acute pancreatitis. Ideally the patient should wait 24 hours before undergoing a 3rd exam with intravenous contrast (after this exam and coronary angiography). D/ / Taj Johnson MD / Taj Johnson MD Interpreting Provider: Taj Johnson MD Abdomen Ultrasound 10/09/17 15:30 IMPRESSION: 3.9 x 3.1 x 3.4 cm complex cystic lesion near the pancreatic head. Remainder of the pancreas is not well evaluated. When compared with recent CT of the chest pancreatic body and tail appear enlarged and edematous with adjacent inflammatory change. Findings likely represent acute appendicitis and findings near the pancreatic head may represent a peripancreatic fluid collection. Recommend further evaluation with CT of the abdomen and pelvis. D/ / Shaye Daugherty MD / Shaye Daugherty MD Interpreting Provider: Shaye Daugherty MD Consult Discharge Plan - Plan Referrals: Myles Hess MD [Primary Care Provider] - 10/21/17 9:00 am
[2017-10-09] MEDS ORDERED: *HR* Morphine 2 MG/ML SYRINGE ONE (18:40)
[2017-10-09] MEDS: *HR* OxyCODONE Immed Rel 5 MG TABLET PO PRN (20:40)
[2017-10-10] MEDS: Melatonin 3 MG TABLET PO PRN (00:37)
[2017-10-10] MEDS: *HR* OxyCODONE Immed Rel 5 MG TABLET PO PRN ×5 (00:37→17:31)
[2017-10-10] MEDS: *HR* Morphine 2 MG/ML SYRINGE IVP PRN ×6 (03:13→22:54)
[2017-10-10] MEDS: *HR* Enoxaparin 40 MG/0.4 ML SYRINGE SQ SCH (05:53)
[2017-10-10 08:18] LABS: Albumin 3.7 g/dL (3.5-5.7); Bilirubin,Direct 0.1 mg/dL (0.0-0.2); Bilirubin,Indirect 0.4 mg/dL (0.0-1.2); Bilirubin,Total 0.5 mg/dL (0.3-1.0); Carbon Dioxide 24 mEq/L (23-29); Chloride 96 mEq/L (98-107); Potassium 3.8 mEq/L (3.5-5.1); Sodium 130 mEq/L (136-145)
[2017-10-10 08:23] LABS: Alanine Aminotransferase 14 Units/L (7-52); Albumin/Globulin Ratio 1.3 (1.1-2.2); Alkaline Phosphatase 111 Units/L (34-104); Aspartate Amino Transferase 20 Units/L (13-39); BUN/Creatinine Ratio 13 (6-26); Blood Urea Nitrogen 7 mg/dL (6-20); Globulin 2.9 g/dL (2.4-3.5); Glucose 307 mg/dL (70-105); Osmolality,Calculated 280 (280-300); Total Protein 6.6 g/dL (6.4-8.9); eGFR For African Americans > 60 (> 60); eGFR For Non-African Americans > 60 (> 60)
[2017-10-10 08:28] LABS: Hematocrit 38.5 % (37.5-50.1); Hemoglobin 13.6 g/dL (12.9-16.9); Mean Corpuscular HGB Conc 35.3 g/dL (31.6-35.5); Mean Corpuscular Hemoglobin 31.4 pg (28.0-33.3); Mean Corpuscular Volume 88.9 fL (83.0-100.0); Mean Platelet Volume 11.2 fL (9.4-12.4); Platelet Count 187 K/mcL (140-400); Red Blood Count 4.33 M/mcL (4.19-5.50); Red Cell Distribution Width 12.6 % (11.5-14.5)
[2017-10-10] MEDS: Insulin LISPRO 300 UNITS/3 ML VIAL SQ SCH ×4 (08:44→20:45)
--- NOTE | 2017-10-10 12:12 | Gastroenterology Consult Note ---
<Fred Ceballos Leif - Last Filed: 10/10/17 12:08> Date of Encounter: 10/10/17 Time of Encounter: 10:30 - Assessment and plan (1) Pancreatitis Current Visit: Yes Status: Acute Assessment and plan: CTA chest showed inflammation in the upper abdomen suggestion acute pancreatitis. CT A/P shows in the pancreatic head 1.6 x 2.2 cm as well as a 2.9 x 9.5 cm mass in pancreatic body and tail. Dr. Peraza to evaluate CT A/P images, consider MRCP vs EUS. Lipase and LFTs within normal limits. Triglycerides 196. Check ionized calcium, IgG4, and JAIRO. Qualifiers: Chronicity: acute Pancreatitis type: unspecified pancreatitis type Acute pancreatitis complication: no infection or necrosis Qualified Code(s): K85.90 - Acute pancreatitis without necrosis or infection, unspecified - Time Spent With Patient Total time spent is greater than 50% in coordination of care (as documented) at patient's floor/unit and/or counseling patient: GI History of Present Illness - Data of Consult Patient: new to practice Consult date: 10/10/17 Requesting Physician: Chaya Turner CNP - Consult Narrative Reason for consult: Pancreatic cyst/pancreatitis History of present illness: Mr. Deshpande is a 47 year old male with PMHx of HTN, anxiety, GERD, ETOH abuse who presented to the ED with chest pain that was worsened with exertion. SL NTG did not improve his pain. He was seen late August/early September at [facility] and diagnosed with acute pancreatitis. [facility] completed 10/09 with normal coronary arteries. We were consulted for acute pancreatitis. CTA chest showed inflammation in the upper abdomen suggestion acute pancreatitis. CT A/P shows in the pancreatic head a 1.6 x 2.2 cm mass as well as a 2.9 x 9.5 cm mass in pancreatic body and tail. Lipase and LFTs within normal limits. Triglycerides 196. Procedures: None NSAIDs: None Anticoagulation: None Past Med Surg Social Fam HX - Past Medical History Medical history: hypertension, myocardial infarction Psychiatric history: anxiety - Social History Smoking Status: Current every day smoker Packs per day: 1.5ppd for at least 30 yrs Alcohol use: none Drug use: unknown (Patient denies-- coarse history of utilizing Percocet), opiates (+ 1 month ago ), methamphetamine (+ tox screen at outisde facility 1 month ago) - Family History Mother Hx Family Cardiac Disorders: Yes Hx Family Endocrine Disorder: Yes - Gastrointestinal Gastrointestinal: Present: as per HPI - Constitutional Constitutional: as per HPI - EENT Eyes: as per HPI Ears: Present: as per HPI Nose, mouth and throat: Present: as per HPI - Cardiovascular Cardiovascular ROS: Present: as per HPI - Respiratory Respiratory IM: Present: as per HPI - Genitourinary Genitourinary: Absent: change in color, Urinary frequency - Neurological ROS Neurological GI: Present: as per HPI - Hematologic/Lymphatic Hematologic/Lymphatic pediatric: Present: as per HPI - Musculoskeletal Musculoskeletal ROS GI: Present: as per HPI - Integumentary Integumentary GI: Present: as per HPI - Psychiatric ROS Psychiatric GI: Present: as per HPI - Endocrine Endocrine IM: Present: as per HPI - Constitutional Vitals: Temp Pulse Resp BP Pulse Ox 98.1 F 90 16 136/98 96 10/10/17 10:58 10/10/17 10:58 10/10/17 10:58 10/10/17 10:58 10/10/17 10:58 General appearance: Present: cooperative, A&O X 3, no acute distress, answers questions appropriately - Head Head exam: Present: atraumatic, normocephalic - Eye Eye exam: Present: normal appearance, sclera anicteric - ENT ENT exam: Present: mucous membranes dry - Neck Neck exam general surgery: Present: normal inspection, trachea midline - Respiratory Respiratory exam: Present: CTAB. Absent: rales, rhonchi - Cardiovascular Cardiovascular exam: Present: RRR, +S1, +S2 - GI/Abdominal GI/Abdominal exam: Present: soft, tenderness (epigastric), no peritoneal signs. Absent: distended, firm, guarding - Rectal Rectal exam: Present: deferred - Extremities Exam Extremities exam: Present: warm - Neurological Exam Neurological exam: Present: no focal deficits - Psychiatric Psychiatric exam: Present: normal affect, normal mood - Skin Skin exam: Present: dry, intact, normal color, warm Results - Labs CBC & Chem 7: 10/10/17 08:00 10/10/17 08:00 Labs: Last Result Calcium 9.0 mg/dL (8.6-10.3) 10/10/17 08:00 Troponin I 0.03 ng/mL (< 0.04) 10/08/17 08:45 Triglycerides 196 mg/dL (< 150) H 10/09/17 09:42 Entire Visit Hgb 13.6 g/dL (12.9-16.9) 10/10/17 08:00 Hct 38.5 % (37.5-50.1) 10/10/17 08:00 PT 13.1 Seconds (9.4-12.1) H 10/07/17 10:54 Total Bilirubin 0.5 mg/dL (0.3-1.0) 10/10/17 08:00 AST 20 Units/L (13-39) 10/10/17 08:00 ALT 14 Units/L (7-52) 10/10/17 08:00 Amylase 51 Units/L (29-103) 10/09/17 09:42 Lipase 25 Units/L (11-82) 10/09/17 04:26 - ABG ABG results: PT/INR, D-dimer PT 13.1 Seconds (9.4-12.1) H 10/07/17 10:54 - Impressions Impressions Abdomen Ultrasound 10/09/17 15:30 IMPRESSION: 3.9 x 3.1 x 3.4 cm complex cystic lesion near the pancreatic head. Remainder of the pancreas is not well evaluated. When compared with recent CT of the chest pancreatic body and tail appear enlarged and edematous with adjacent inflammatory change. Findings likely represent acute appendicitis and findings near the pancreatic head may represent a peripancreatic fluid collection. Recommend further evaluation with CT of the abdomen and pelvis. D/ / Shaye Daugherty MD / Shaye Daugherty MD Interpreting Provider: Shaye Daugherty MD Abdomen/Pelvis CT 10/10/17 08:30 IMPRESSION: 1. In the pancreatic head as well as the pancreatic body and tail there is complex hypodense mass foci which demonstrates Hounsfield units in the fluid density range. This could represent phlegmon with necrosis in the setting of acute pancreatitis with developing complex pseudocyst at the level of the body and tail. Mild adjacent inflammation and trace ascites. An underlying neoplasm cannot be excluded with possible adjacent lymphadenopathy. If clinical symptoms and laboratory values correspond with acute pancreatitis recommend follow-up evaluation with CT abdomen with/ without contrast post resolution of the acute episode to ensure no underlying abnormality. 2. No evidence of cholelithiasis or intrahepatic/extrahepatic biliary obstruction. D/ / 10/10/2017 09:33:27 Pardeep Adames MD / [email or web address] Interpreting Provider: Pardeep Adames MD Consult Discharge Plan - Plan Referrals: Myles Hess MD [Primary Care Provider] - 10/14/17 2:30 pm <Charisma Peraza - Last Filed: 10/10/17 14:41> Date of Encounter: 10/10/17 Time of Encounter: 13:00 - Time Spent With Patient Total time spent is greater than 50% in coordination of care (as documented) at patient's floor/unit and/or counseling patient: GI History of Present Illness - Data of Consult Requesting Physician: Chaya Turner CNP - Consult Narrative History of present illness: Mr. Deshpande is a 47 year old male - Constitutional Vitals: Temp Pulse Resp BP Pulse Ox 98.1 F 90 16 136/98 96 10/10/17 10:58 10/10/17 10:58 10/10/17 10:58 10/10/17 10:58 10/10/17 10:58 Results - Labs CBC & Chem 7: 10/10/17 08:00 10/10/17 08:00 Labs: Last Result Calcium 9.0 mg/dL (8.6-10.3) 10/10/17 08:00 Troponin I 0.03 ng/mL (< 0.04) 10/08/17 08:45 Triglycerides 196 mg/dL (< 150) H 10/09/17 09:42 Entire Visit Hgb 13.6 g/dL (12.9-16.9) 10/10/17 08:00 Hct 38.5 % (37.5-50.1) 10/10/17 08:00 PT 13.1 Seconds (9.4-12.1) H 10/07/17 10:54 Total Bilirubin 0.5 mg/dL (0.3-1.0) 10/10/17 08:00 AST 20 Units/L (13-39) 10/10/17 08:00 ALT 14 Units/L (7-52) 10/10/17 08:00 Amylase 51 Units/L (29-103) 10/09/17 09:42 Lipase 25 Units/L (11-82) 10/09/17 04:26 - ABG ABG results: PT/INR, D-dimer PT 13.1 Seconds (9.4-12.1) H 10/07/17 10:54 - Impressions Impressions Abdomen Ultrasound 10/09/17 15:30 IMPRESSION: 3.9 x 3.1 x 3.4 cm complex cystic lesion near the pancreatic head. Remainder of the pancreas is not well evaluated. When compared with recent CT of the chest pancreatic body and tail appear enlarged and edematous with adjacent inflammatory change. Findings likely represent acute appendicitis and findings near the pancreatic head may represent a peripancreatic fluid collection. Recommend further evaluation with CT of the abdomen and pelvis. D/ / Shaye Daugherty MD / Shaye Daugherty MD Interpreting Provider: Shaye Daugherty MD Abdomen/Pelvis CT 10/10/17 08:30 IMPRESSION: 1. In the pancreatic head as well as the pancreatic body and tail there is complex hypodense mass foci which demonstrates Hounsfield units in the fluid density range. This could represent phlegmon with necrosis in the setting of acute pancreatitis with developing complex pseudocyst at the level of the body and tail. Mild adjacent inflammation and trace ascites. An underlying neoplasm cannot be excluded with possible adjacent lymphadenopathy. If clinical symptoms and laboratory values correspond with acute pancreatitis recommend follow-up evaluation with CT abdomen with/ without contrast post resolution of the acute episode to ensure no underlying abnormality. 2. No evidence of cholelithiasis or intrahepatic/extrahepatic biliary obstruction. D/ / 10/10/2017 09:33:27 Pardeep Adames MD / jerrod Interpreting Provider: Pardeep Adames MD - Attending Attestation I examined this patient and my medical decision-making was reviewed with the JAVASCRIPT ENGINEER. I agree with the documented findings, disposition and treatment plan as described except to the extent set forth below. Patient admitted after being sent from a PCP office due to abnormal-looking EKG although per patient he was not having any chest pain does admit to having epigastric pain that but that is going on for for few weeks. The patient has been able to eat but has been taking pain medication. CT scan was reviewed with the radiologist there is inflammation around the pancreas and there is some suspicion for possible necrosis/fluid collection but the CAT scan was done without contrast. Rec: IV fluid pain control CT of the pancreas with IV contrast.
[2017-10-10] MEDS: Aspirin 81 MG TAB.CHEW PO SCH (13:23)
[2017-10-10] MEDS: 0.9 % Sodium Chloride 1,000 ML IVC SCH ×2 (14:04→19:48)
--- NOTE | 2017-10-10 17:47 | Internal Med Progress Note ---
Date of Encounter: 10/10/17 Time of Encounter: 08:30 - Assessment and plan (1) Pancreatitis Current Visit: Yes Status: Acute Assessment and plan: presented with epigastric pain. ACS ruled out as noted below. ABD US showed complex cystic lesion near the pancreatic head, remainder of the pancreas is not well evaluated. When compared with recent CT of the chest pancreatic body and tail appear enlarged and edematous with adjacent inflammatory change. Findings likely represent acute appendicitis and findings near the pancreatic head may represent a peripancreatic fluid collection. Gallbladder normal. CT with contrast shows acute pancreatitis with 3 pancreatic fluid collections, no evidence of gas. Little to no enhancement visualized of the pancreatic body and tail concerning for pancreatic necrosis. Strongly encouraged NPO for at least clear liquid diet and patient declining. Does not appear acute or toxic. Afebrile, no elevated WBC. Cont IV fluids at 200ml/hr. GI following, awaiting further recommendations. Qualifiers: Chronicity: acute Pancreatitis type: unspecified pancreatitis type Acute pancreatitis complication: no infection or necrosis Qualified Code(s): K85.90 - Acute pancreatitis without necrosis or infection, unspecified (2) Chest pain Current Visit: Yes Status: Acute Assessment and plan: presented with CP for one month, worse with exertion. Serial troponin negative, EKG without acute ST changes. CXR negative. 10/09/17 LHC showed normal coronary arteries, EF 65%. TTE pending. Suspect GI source as cause of CP. No further cardiac work-up needed. Qualifiers: Chest pain type: unspecified Qualified Code(s): R07.9 - Chest pain, unspecified (3) Diabetes Current Visit: Yes Status: Acute Assessment and plan: new diagnosis this admission. Hgb A1c 10%. Blood sugars remain elevated. Increase to high SSI. Monitor blood sugar and titrate PRN. Plan to discharge home on metformin Qualifiers: Diabetes mellitus type: type 2 Diabetes mellitus complication status: without complication Diabetes mellitus long-term insulin use: without termite treater use Qualified Code(s): E11.9 - Type 2 diabetes mellitus without complications (4) DVT prophylaxis Current Visit: Yes Status: Acute Assessment and plan: lovenox - Subjective Interval history: Seen and examined at bedside. Still with c/o epigastric pain but says he feels significanlty better than yesterday after pain medicine is increased. - Constitutional Vitals: Temp Pulse Resp BP Pulse Ox 98.6 F 101 16 149/103 98 10/10/17 14:00 10/10/17 14:00 10/10/17 14:00 10/10/17 14:00 10/10/17 14:00 General appearance: Present: A&O X 3 - Head Head exam: Present: atraumatic, normocephalic - Eye Eye exam: Present: PERRL, conjuntiva pink, sclera anicteric Pupils: Present: PERRL - Neck Neck exam general surgery: Present: supple, trachea midline. Absent: lymphadenopathy - Respiratory Respiratory exam: Present: CTAB. Absent: accessory muscle use, rales, rhonchi, wheezes - Cardiovascular Cardiovascular exam: Present: RRR, +S1, +S2. Absent: diastolic murmur, gallop, rubs, systolic murmur - GI/Abdominal GI/Abdominal exam: Present: normal bowel sounds, soft, no peritoneal signs. Absent: distended, tenderness - Extremities Exam Extremities exam: Present: warm, radial pulses palpable and symmetrical. Absent : calf tenderness, cyanotic, pedal edema - Neurological Exam Neurological exam: Present: CN II-XII intact, oriented X3, no focal deficits. Absent: pronater drift, facial droop, speech deficit - Skin Skin exam: Present: dry, intact Internal Medicine: Result - Labs CBC & Chem 7: 10/10/17 08:00 10/10/17 08:00 Labs: Short CBC 10/10/17 Range/Units 08:00 WBC 7.6 (4.3-11.1) K/mcL Hgb 13.6 (12.9-16.9) g/dL Hct 38.5 (37.5-50.1) % Plt Count 187 (140-400) K/mcL BMP 10/10/17 08:00 Sodium 130 L Potassium 3.8 Chloride 96 L Carbon Dioxide 24 BUN 7 Creatinine 0.56 L Glucose 307 H Calcium 9.0 Liver Function 10/10/17 Range/Units 08:00 Total Bilirubin 0.5 (0.3-1.0) mg/dL Direct Bilirubin 0.1 (0.0-0.2) mg/dL AST 20 (13-39) Units/L ALT 14 (7-52) Units/L Alkaline Phosphatase 111 H (34-104) Units/L Albumin 3.7 (3.5-5.7) g/dL - ABG Interpretation ABG results: PT/INR, D-dimer PT 13.1 Seconds (9.4-12.1) H 10/07/17 10:54 - Impressions Impressions Abdomen Ultrasound 10/09/17 15:30 IMPRESSION: 3.9 x 3.1 x 3.4 cm complex cystic lesion near the pancreatic head. Remainder of the pancreas is not well evaluated. When compared with recent CT of the chest pancreatic body and tail appear enlarged and edematous with adjacent inflammatory change. Findings likely represent acute appendicitis and findings near the pancreatic head may represent a peripancreatic fluid collection. Recommend further evaluation with CT of the abdomen and pelvis. D/ / Shaye Daugherty MD / Shaye Daugherty MD Interpreting Provider: Shaye Daugherty MD Abdomen/Pelvis CT 10/10/17 08:30 IMPRESSION: 1. In the pancreatic head as well as the pancreatic body and tail there is complex hypodense mass foci which demonstrates Hounsfield units in the fluid density range. This could represent phlegmon with necrosis in the setting of acute pancreatitis with developing complex pseudocyst at the level of the body and tail. Mild adjacent inflammation and trace ascites. An underlying neoplasm cannot be excluded with possible adjacent lymphadenopathy. If clinical symptoms and laboratory values correspond with acute pancreatitis recommend follow-up evaluation with CT abdomen with/ without contrast post resolution of the acute episode to ensure no underlying abnormality. 2. No evidence of cholelithiasis or intrahepatic/extrahepatic biliary obstruction. D/ / 10/10/2017 09:33:27 Pardeep Adames MD / [email or web address] Interpreting Provider: Pardeep Adames MD Abdomen CT 10/10/17 14:30 IMPRESSION: Findings as above likely related to acute pancreatitis with 3 pancreatic fluid collections. No internal foci of gas. Largest measures up to 3.7 x 3.5 cm. Little to no enhancement visualized in the pancreatic body and tail concerning for pancreatic necrosis. No discrete mass visualized however evaluation is severely limited by fluid collections and inflammatory change. Recommend follow-up with pancreatic protocol CT once clinical symptoms resolved. Thin low-attenuation filling defect noted along the anterior wall of the portosplenic confluence extending into the left main portal vein concerning for nonobstructing thrombus. D/ / Shaye Daugherty MD / Shaye Daugherty MD Interpreting Provider: Shaye Daugherty MD Consult Discharge Plan - Plan Referrals: Myles Hess MD [Primary Care Provider] - 10/14/17 2:30 pm
[2017-10-10] MEDS: Ketorolac 15 MG/ML VIAL IM PRN (20:45)
[2017-10-11] MEDS: *HR* Morphine 2 MG/ML SYRINGE IVP PRN ×6 (01:50→21:29)
[2017-10-11] MEDS: 0.9 % Sodium Chloride 1,000 ML IVC SCH ×5 (01:50→21:35)
[2017-10-11] MEDS: Insulin LISPRO 300 UNITS/3 ML VIAL SQ SCH ×4 (02:12→17:11)
[2017-10-11] MEDS: *HR* Enoxaparin 40 MG/0.4 ML SYRINGE SQ SCH (05:49)
[2017-10-11] MEDS: Ketorolac 15 MG/ML VIAL IM PRN ×3 (06:49→23:54)
[2017-10-11] MEDS ORDERED: *HR* Metoprolol 5 MG/5 ML VIAL IVP ONE (09:22)
[2017-10-11] MEDS: Aspirin 81 MG TAB.CHEW PO SCH ×2 (09:32→10:26)
[2017-10-11 10:38] LABS: Hematocrit 36.1 % (37.5-50.1); Hemoglobin 12.3 g/dL (12.9-16.9); Mean Corpuscular HGB Conc 34.1 g/dL (31.6-35.5); Mean Corpuscular Hemoglobin 31.1 pg (28.0-33.3); Mean Corpuscular Volume 91.2 fL (83.0-100.0); Mean Platelet Volume 11.6 fL (9.4-12.4); Platelet Count 164 K/mcL (140-400); Red Blood Count 3.96 M/mcL (4.19-5.50); Red Cell Distribution Width 12.9 % (11.5-14.5)
[2017-10-11 10:47] LABS: Alanine Aminotransferase 18 Units/L (7-52); Albumin 3.3 g/dL (3.5-5.7); Albumin/Globulin Ratio 1.2 (1.1-2.2); Alkaline Phosphatase 105 Units/L (34-104); Aspartate Amino Transferase 32 Units/L (13-39); BUN/Creatinine Ratio 6 (6-26); Bilirubin,Total 0.4 mg/dL (0.3-1.0); Blood Urea Nitrogen 3 mg/dL (6-20); Calcium 8.5 mg/dL (8.6-10.3); Carbon Dioxide 25 mEq/L (23-29); Chloride 101 mEq/L (98-107); Globulin 2.8 g/dL (2.4-3.5); Glucose 275 mg/dL (70-105); Osmolality,Calculated 280 (280-300); Potassium 3.7 mEq/L (3.5-5.1); Sodium 132 mEq/L (136-145); Total Protein 6.1 g/dL (6.4-8.9); eGFR For African Americans > 60 (> 60); eGFR For Non-African Americans > 60 (> 60)
--- NOTE | 2017-10-11 11:27 | Gastroenterology Progress Note ---
<Fred Ceballos - Last Filed: 10/11/17 11:25> Date of Encounter: 10/11/17 Time of Encounter: 10:05 - Assessment and plan (1) Pancreatitis Status: Acute Assessment and plan: CT abdomen with contrast shows acute pancreatitis with 3 pancreatic fluid collections. Largest measures up to 3.7 x 3.5 cm. Little to no enhancement visualized in the pancreatic body and tail concerning for pancreatic necrosis. No discrete mass visualized however evaluation is severely limited by fluid collections and inflammatory change. Thin low-attenuation filling defect noted along the anterior wall of the portosplenic confluence extending into the left main portal vein concerning for nonobstructing thrombus. Lipase and LFTs within normal limits. Triglycerides 196. Check ionized calcium, IgG4, and JAIRO. Pt tolerated eating last night. Ok to restart diabetic diet. If does not tolerate PO intake, recommend nasojejunal tube feeding. Continue to monitor nonobstructing thrombus. Qualifiers: Chronicity: acute Pancreatitis type: unspecified pancreatitis type Acute pancreatitis complication: uninfected necrosis Qualified Code(s): K85.91 - Acute pancreatitis with uninfected necrosis, unspecified - Time Spent With Patient Total time spent is greater than 50% in coordination of care (as documented) at patient's floor/unit and/or counseling patient: - Subjective Interval history: Pt resting comfortably in bed and is without acute complaint at this time. He reports being hungry and would like to eat today. He states he ate pizza yesterday without difficulty. He denies abdominal pain, nausea, or vomiting. - Constitutional Vitals: Temp Pulse Resp BP Pulse Ox 98.2 F 83 18 167/113 98 10/11/17 10:17 10/11/17 10:17 10/11/17 10:17 10/11/17 10:17 10/11/17 10:17 General appearance: Present: cooperative, A&O X 3, no acute distress, answers questions appropriately - Head Head exam: Present: atraumatic, normocephalic - Eye Eye exam: Present: normal appearance, sclera anicteric - ENT ENT exam: Present: mucous membranes moist - Neck Neck exam general surgery: Present: normal inspection, trachea midline - Respiratory Respiratory exam: Present: CTAB. Absent: rales, rhonchi - Cardiovascular Cardiovascular exam: Present: RRR, +S1, +S2 - GI/Abdominal GI/Abdominal exam: Present: soft, no peritoneal signs. Absent: distended, firm , guarding, tenderness - Rectal Rectal exam: Present: deferred - Extremities Exam Extremities exam: Present: warm - Neurological Exam Neurological exam: Present: no focal deficits - Psychiatric Psychiatric exam: Present: normal affect, normal mood - Skin Skin exam: Present: dry, intact, normal color, warm Results - Labs CBC & Chem 7: 10/11/17 10:15 10/11/17 10:15 Labs: Last Result Calcium 8.5 mg/dL (8.6-10.3) L 10/11/17 10:15 Troponin I 0.03 ng/mL (< 0.04) 10/08/17 08:45 Triglycerides 196 mg/dL (< 150) H 10/09/17 09:42 Entire Visit Hgb 12.3 g/dL (12.9-16.9) L 10/11/17 10:15 Hct 36.1 % (37.5-50.1) L 10/11/17 10:15 PT 13.1 Seconds (9.4-12.1) H 10/07/17 10:54 Total Bilirubin 0.4 mg/dL (0.3-1.0) 10/11/17 10:15 AST 32 Units/L (13-39) 10/11/17 10:15 ALT 18 Units/L (7-52) 10/11/17 10:15 Amylase 51 Units/L (29-103) 10/09/17 09:42 Lipase 25 Units/L (11-82) 10/09/17 04:26 - ABG ABG results: PT/INR, D-dimer PT 13.1 Seconds (9.4-12.1) H 10/07/17 10:54 Consult Discharge Plan - Plan Instructions: Omeprazole (By mouth), Oxycodone, Rapid Release (By mouth), Metformin (By mouth), Pancreatitis (DC), Diabetes Mellitus Type 2 in Adults (DC) Referrals: Serafin Jensen MD [Partnered Physician] - (Please call Dr. Jensen's office on to schedule a follow-up appointment) Myles Hess MD [Primary Care Provider] - 10/14/17 2:30 pm Prescriptions: metFORMIN [Glucophage] 500 mg PO BIDWM #60 tablet Omeprazole [PriLOSEC] 40 mg PO DAILY #30 cap Oxycodone HCl 5 mg PO Q6H PRN #56 tablet PRN Reason: Pain <Serafin Jensen - Last Filed: 10/17/17 13:19> Date of Encounter: 10/11/17 - Time Spent With Patient Total time spent is greater than 50% in coordination of care (as documented) at patient's floor/unit and/or counseling patient: - Constitutional Vitals: Temp Pulse Resp BP Pulse Ox 98.4 F 73 18 126/85 96 10/12/17 11:33 10/12/17 11:33 10/12/17 11:33 10/12/17 11:33 10/12/17 11:33 Results - Labs CBC & Chem 7: 10/11/17 10:15 10/11/17 10:15 Labs: Last Result Calcium 8.5 mg/dL (8.6-10.3) L 10/11/17 10:15 Troponin I 0.03 ng/mL (< 0.04) 10/08/17 08:45 Triglycerides 196 mg/dL (< 150) H 10/09/17 09:42 Entire Visit Hgb 12.3 g/dL (12.9-16.9) L 10/11/17 10:15 Hct 36.1 % (37.5-50.1) L 10/11/17 10:15 PT 13.1 Seconds (9.4-12.1) H 10/07/17 10:54 Total Bilirubin 0.4 mg/dL (0.3-1.0) 10/11/17 10:15 AST 32 Units/L (13-39) 10/11/17 10:15 ALT 18 Units/L (7-52) 10/11/17 10:15 Amylase 51 Units/L (29-103) 10/09/17 09:42 Lipase 25 Units/L (11-82) 10/09/17 04:26 - ABG ABG results: PT/INR, D-dimer PT 13.1 Seconds (9.4-12.1) H 10/07/17 10:54 - Attending Attestation Patient admitted with acute pancreatitis. Clinically looks much better than his scans. Tolerating his diet. Had a long discussion with patient. I have personally performed a face to face evaluation on this patient. I have reviewed and agree with the care plan. History and Exam by me shows:
[2017-10-11 15:22] LABS: Immunoglobulin G Subclass 4 74 mg/dL (1-123)
--- NOTE | 2017-10-11 16:09 | Internal Med Progress Note ---
Date of Encounter: 10/11/17 Time of Encounter: 10:00 - Assessment and plan (1) Pancreatitis Current Visit: Yes Status: Acute Assessment and plan: presented with epigastric pain. ACS ruled out as noted below. ABD US showed complex cystic lesion near the pancreatic head, remainder of the pancreas is not well evaluated. When compared with recent CT of the chest pancreatic body and tail appear enlarged and edematous with adjacent inflammatory change. Findings likely represent acute appendicitis and findings near the pancreatic head may represent a peripancreatic fluid collection. Gallbladder normal. CT with contrast shows acute pancreatitis with 3 pancreatic fluid collections, no evidence of gas. Little to no enhancement visualized of the pancreatic body and tail concerning for pancreatic necrosis. Strongly encouraged NPO for at least clear liquid diet and patient declining. Does not appear acute or toxic. Afebrile, no elevated WBC. Cont IV fluids at 200ml/hr. Pt tolerated eating last night. Ok to restart diabetic diet per GI. If does not tolerate PO intake, recommend nasojejunal tube feeding per GI. Continue to monitor nonobstructing thrombus. Qualifiers: Chronicity: acute Pancreatitis type: unspecified pancreatitis type Acute pancreatitis complication: uninfected necrosis Qualified Code(s): K85.91 - Acute pancreatitis with uninfected necrosis, unspecified (2) Chest pain Current Visit: Yes Status: Acute Assessment and plan: presented with CP for one month, worse with exertion. Serial troponin negative, EKG without acute ST changes. CXR negative. 10/09/17 LHC showed normal coronary arteries, EF 65%. TTE pending. Suspect GI source as cause of CP. No further cardiac work-up needed. Qualifiers: Chest pain type: unspecified Qualified Code(s): R07.9 - Chest pain, unspecified (3) Diabetes Current Visit: Yes Status: Acute Assessment and plan: new diagnosis this admission. Hgb A1c 10%. Blood sugars remain elevated. Increase to high SSI, add long acting insulin. Monitor blood sugar and titrate PRN. Plan to discharge home on metformin Qualifiers: Diabetes mellitus type: type 2 Diabetes mellitus complication status: without complication Diabetes mellitus long term care social worker insulin use: without long term care social worker use Qualified Code(s): E11.9 - Type 2 diabetes mellitus without complications (4) DVT prophylaxis Current Visit: Yes Status: Acute Assessment and plan: lovenox - Subjective Interval history: Seen and examined at bedside; says he feels about the same. Still with some epigastric pain, overall improved. Says he is hungry and would like to advance diet if able. - Constitutional Vitals: Temp Pulse Resp BP Pulse Ox 98.6 F 89 18 144/105 96 10/11/17 15:01 10/11/17 15:01 10/11/17 15:01 10/11/17 15:01 10/11/17 15:01 General appearance: Present: A&O X 3 - Head Head exam: Present: atraumatic, normocephalic - Eye Eye exam: Present: PERRL, conjuntiva pink, sclera anicteric Pupils: Present: PERRL - Neck Neck exam general surgery: Present: supple, trachea midline. Absent: lymphadenopathy - Respiratory Respiratory exam: Present: CTAB. Absent: accessory muscle use, rales, rhonchi, wheezes - Cardiovascular Cardiovascular exam: Present: RRR, +S1, +S2. Absent: diastolic murmur, gallop, rubs, systolic murmur - GI/Abdominal GI/Abdominal exam: Present: normal bowel sounds, soft, no peritoneal signs. Absent: distended, tenderness - Extremities Exam Extremities exam: Present: warm, radial pulses palpable and symmetrical. Absent : calf tenderness, cyanotic, pedal edema - Neurological Exam Neurological exam: Present: CN II-XII intact, oriented X3, no focal deficits. Absent: pronater drift, facial droop, speech deficit - Skin Skin exam: Present: dry, intact Internal Medicine: Result - Labs CBC & Chem 7: 10/11/17 10:15 10/11/17 10:15 Labs: Short CBC 10/11/17 Range/Units 10:15 WBC 6.7 (4.3-11.1) K/mcL Hgb 12.3 L (12.9-16.9) g/dL Hct 36.1 L (37.5-50.1) % Plt Count 164 (140-400) K/mcL BMP 10/11/17 10:15 Sodium 132 L Potassium 3.7 Chloride 101 Carbon Dioxide 25 BUN 3 L Creatinine 0.53 L Glucose 275 H Calcium 8.5 L Liver Function 10/11/17 Range/Units 10:15 Total Bilirubin 0.4 (0.3-1.0) mg/dL AST 32 (13-39) Units/L ALT 18 (7-52) Units/L Alkaline Phosphatase 105 H (34-104) Units/L Albumin 3.3 L (3.5-5.7) g/dL - ABG Interpretation ABG results: PT/INR, D-dimer PT 13.1 Seconds (9.4-12.1) H 10/07/17 10:54 Consult Discharge Plan - Plan Referrals: Myles Hess MD [Primary Care Provider] - 10/14/17 2:30 pm
[2017-10-11] MEDS ORDERED: Insulin DETEMIR 100 UNIT/ML X5UNITS SQ SCH (21:00)
[2017-10-11] MEDS ORDERED: Insulin LISPRO 300 UNITS/3 ML VIAL SQ SCH ×2 (21:00)
[2017-10-11] MEDS ORDERED: Ketorolac 15 MG/ML VIAL IVP PRN (23:59)
[2017-10-12] MEDS: *HR* Morphine 2 MG/ML SYRINGE IVP PRN (01:10)
[2017-10-12] MEDS: Melatonin 3 MG TABLET PO PRN (01:10)
[2017-10-12] MEDS: 0.9 % Sodium Chloride 1,000 ML IVC SCH ×2 (02:24→08:30)
[2017-10-12] MEDS ORDERED: *HR* OxyCODONE Immed Rel 5 MG TABLET PO PRN (08:10)
[2017-10-12] MEDS: Aspirin 81 MG TAB.CHEW PO SCH (08:27)
[2017-10-12] MEDS: *HR* OxyCODONE Immed Rel 5 MG TABLET PO PRN ×2 (08:28→15:08)
[2017-10-12] MEDS: *HR* Enoxaparin 40 MG/0.4 ML SYRINGE SQ SCH (08:28)
[2017-10-12] MEDS: Insulin LISPRO 300 UNITS/3 ML VIAL SQ SCH ×2 (08:29→12:26)
[2017-10-12 11:14] LABS: ANA IgG by ELISA NONE DETECTED (None Detected)
[2017-10-12 11:39] VITALS: BP 126/85
--- NOTE | 2017-10-12 13:17 | Discharge Summary ---
Date of Encounter: 10/12/17 Time of Encounter: 13:18 - Discharge Diagnosis (1) Pancreatitis Priority: Primary Status: Acute Comments: presented with epigastric pain. ACS ruled out as noted below. ABD US showed complex cystic lesion near the pancreatic head, remainder of the pancreas is not well evaluated. ABD CT with contrast showed acute pancreatitis with 3 pancreatic fluid collections, no evidence of gas. Little to no enhancement visualized of the pancreatic body and tail concerning for pancreatic necrosis. Did not appear acute or toxic. Remained afebrile, no elevated WBC, no indication for ATB. Initially treated with aggressvuve IV fluids, pain control and NPO. Evaluated by GI who allowed PO diet as patient was tolerating. Discussed with Dr. Jensen on 10/12/17 and okay to discharge home on regular, low- fat diet. Will need to follow-up with the GI early next week. 1 week Rx given for oxycodone for pain control. 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 Hgb A1c 10%. Blood sugars remain elevated and was treated with long-acting insulin and high-dose SSI. Discharge home on metformin. Supplied with glucometer and Rx for supplies. Has follow-up with PCP 10/14/17. 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 Serial troponin negative, EKG without acute ST changes. CXR negative. 10/09/17 LHC showed normal coronary arteries, EF 65%. TTE pending. Suspect GI source as cause of CP. No further cardiac work-up needed. Qualifiers: Chest pain type: unspecified Qualified Code(s): R07.9 - Chest pain, unspecified - Discharge Medications Prescriptions: metFORMIN [Glucophage] 500 mg PO BIDWM #60 tablet Omeprazole [PriLOSEC] 40 mg PO DAILY #30 cap Oxycodone HCl 5 mg PO Q6H PRN #56 tablet PRN Reason: Pain Home Medications: Metoprolol Tartrate [Lopressor] 50 mg PO BID 10/07/17 [History] Omeprazole [PriLOSEC] 40 mg PO DAILY #30 cap 10/12/17 [Rx] Oxycodone HCl 5 mg PO Q6H PRN #56 tablet 10/12/17 [Rx] metFORMIN [Glucophage] 500 mg PO BIDWM #60 tablet 10/12/17 [Rx] Allergies/Adverse Reactions: 3 Allergy/AdvReac Type Severity Reaction Status Date / Time No Known Allergies Allergy Verified 10/07/17 10:33 Date of admission: 10/10/17 17:50 Primary care physician: Myles Hess MD Discharging clinician: Joan Bernardo Anticipated date of discharge: 10/12/17 - Patient Status Disposition: Home, Self-Care Condition: Good Functional capacity at discharge: independent ambulation Overall status at discharge: patient is progressing back to baseline - Discharge Instructions Instructions: Pancreatitis (DC), Oxycodone, Rapid Release (By mouth), Omeprazole (By mouth), Diabetes Mellitus Type 2 in Adults (DC), Metformin (By mouth) Follow Up With: Myles Hess MD [Primary Care Provider] - 10/14/17 2:30 pm Serafin Jensen MD [Partnered Physician] - (Please call Dr. Jensen's office on to schedule a follow-up appointment) - Diet and Activity Activity: increase activity as tolerated Diet: low fat, low cholesterol Interval History: Seen and examined at bedside. Patient still with complaint of epigastric pain but unchanged since she has been here. He is tolerating a regular diet without worsening pain, no loose stool. He would like to go home today if possibl; discussed with Dr. Jensen and okayed to discharge home from a GI standpoint. Hospital course: See assessment and plan for hospital course - Time Spent with Patient Total time spent providing and/or coordinating discharge services: Greater than 30 minutes (36 minutes spent on discharge) - Constitutional Vitals: Temp Pulse Resp BP Pulse Ox 98.4 F 73 18 126/85 96 10/12/17 11:33 10/12/17 11:33 10/12/17 11:33 10/12/17 11:33 10/12/17 11:33 General appearance: Present: A&O X 3
--- NOTE | 2017-10-12 14:46 | Gastroenterology Progress Note ---
Date of Encounter: 10/12/17 Time of Encounter: 09:00 - Time Spent With Patient Total time spent is greater than 50% in coordination of care (as documented) at patient's floor/unit and/or counseling patient: less than 15 minutes - Subjective Interval history: Seen and examined at bedside; says he feels about the same. Still with some epigastric pain, overall improved. Says he is hungry and would like to advance diet if able. Patient much better. We discussed his low fat diet. Tolerating po well. - Constitutional Vitals: Temp Pulse Resp BP Pulse Ox 98.4 F 73 18 126/85 96 10/12/17 11:33 10/12/17 11:33 10/12/17 11:33 10/12/17 11:33 10/12/17 11:33 General appearance: Present: cooperative, A&O X 3, no acute distress, answers questions appropriately - GI/Abdominal GI/Abdominal exam: Present: soft, tenderness, no peritoneal signs Results - Labs CBC & Chem 7: 10/11/17 10:15 10/11/17 10:15 Labs: Last Result Calcium 8.5 mg/dL (8.6-10.3) L 10/11/17 10:15 Troponin I 0.03 ng/mL (< 0.04) 10/08/17 08:45 Triglycerides 196 mg/dL (< 150) H 10/09/17 09:42 Entire Visit Hgb 12.3 g/dL (12.9-16.9) L 10/11/17 10:15 Hct 36.1 % (37.5-50.1) L 10/11/17 10:15 PT 13.1 Seconds (9.4-12.1) H 10/07/17 10:54 Total Bilirubin 0.4 mg/dL (0.3-1.0) 10/11/17 10:15 AST 32 Units/L (13-39) 10/11/17 10:15 ALT 18 Units/L (7-52) 10/11/17 10:15 Amylase 51 Units/L (29-103) 10/09/17 09:42 Lipase 25 Units/L (11-82) 10/09/17 04:26 - ABG ABG results: PT/INR, D-dimer PT 13.1 Seconds (9.4-12.1) H 10/07/17 10:54 Consult Discharge Plan - Plan Instructions: Omeprazole (By mouth), Oxycodone, Rapid Release (By mouth), Metformin (By mouth), Pancreatitis (DC), Diabetes Mellitus Type 2 in Adults (DC) Referrals: Serafin Jensen MD [Partnered Physician] - (Please call Dr. Jensen's office on to schedule a follow-up appointment) Myles Hess MD [Primary Care Provider] - 10/14/17 2:30 pm Prescriptions: metFORMIN [Glucophage] 500 mg PO BIDWM #60 tablet Omeprazole [PriLOSEC] 40 mg PO DAILY #30 cap Oxycodone HCl 5 mg PO Q6H PRN #56 tablet PRN Reason: Pain - Attending Attestation For this encounter, I have reviewed the SHOT POLISHER AND INSPECTOR or PA documentation, treatment plan, and medical decision making; and I have had face to face time with this patient.
== END 2017-10-12 15:25 | disposition home or self-care (01) | DRG 286 ==
LOC: EMEROO 10:19 → 3BNU 10:19
PROVIDERS: ADMIT Registered Nurse; ATTEND Registered Nurse